=== PATIENT | male | born 1955 | race African-American/Black ===

== ENCOUNTER → 2016-12-25 | Outpatient (CLI) | payer OTHER ==
--- NOTE | 2016-12-25 14:36 | RADIOLOGY REPORT (SQ) ---
EXAM DESCRIPTION: CT ABD/PELVIS WITH IV ORAL COMPLETED DATE/TIME: 12/25/2016 1:36 pm REASON FOR STUDY: EPIGASTRIC PAIN R10.13 EPIGASTRIC PAIN R17 UNSPECIFIED JAUNDICE R19.7 DIARRHEA, UNSPECIFIED COMPARISON: None. TECHNIQUE: CT scan of the abdomen and pelvis performed using helical scanning technique with dynamic intravenous contrast injection and with oral contrast. Images reviewed with lung, soft tissue, and b one windows. Reconstructed coronal and sagittal MPR images reviewed. Delayed images for evaluation of the urinary system also acquired. All images stored on PACS. All CT scanners at this facility use dose modulation, iterative reconstruction, and/or weight based d osing when appropriate to reduce radiation dose to as low as reasonably achievable (ALARA). [facility]: Dose Right [facility]: CareDose [facility]: Dose Right [facility]: Teradose 4D [facility]: Mozes CONTRAST TYPE AND DOSE: contrast/concentration: Isovue 370.00 mg/ml; Total Contrast Delivered: 84.0 ml; Total Saline Delivered: 69.0 ml RENAL FUNCTION: BUN 15 creatinine 0.88. RADIATION DOSE: Up-to-date CT equipment and radiation dose reduction techniques were employed. CTDIv ol: 5.6 - 6.6 mGy. DLP: 618 mGy-cm.. LIMITATIONS: None. FINDINGS: LOWER CHEST: No significant findings. No nodules or infiltrates. LIVER: Normal size. No masses. Prominent intrahepatic biliary dilation. SPLEEN: Normal size. No focal lesions. PANCREAS: Dilated common hepatic and common bile duct and mildly dilated pancreatic duct. Minimal pr ominence of the pancreatic head but no focal mass evident. GALLBLADDER: Distended. Layering material in the lumen of the gallbladder. No gallbladder wall thic kening or pericholecystic fluid. ADRENAL GLANDS: No significant masses or asymmetry. RIGHT KIDNEY AND URETER: No solid masses. Calyceal calculi, the largest measuring 8 mm. No hydron ephrosis or hydroureter. LEFT KIDNEY AND URETER: No solid masses. A few tiny calyceal calculi. No hydronephrosis or hydrou reter. AORTA AND VESSELS: No aneurysm. No dissection. Renal arteries, SMA, celiac without stenosis. RETROPERITONEUM: No retroperitoneal adenopathy, hemorrhage or masses. BOWEL AND PERITONEAL CAVITY: No masses or inflammatory changes. No free fluid or peritoneal masses. APPENDIX: Normal. PELVIS: No mass. No free fluid. Irregular calculus in the lumen of the bladder, measuring 13 mm. P rostatic calcifications. ABDOMINAL WALL: No masses. No hernias. BONES: No significant or acute findings. OTHER: No other significant finding. IMPRESSION: 1. MARKED DILATION OF THE INTRAHEPATIC AND EXTRAHEPATIC BILE DUCTS AND MILD DILATION OF THE PANCREATI C DUCT. FINDINGS ARE CONSISTENT WITH DISTAL OBSTRUCTION. NO OBVIOUS ETIOLOGY BUT POSSIBLE CONSIDERA TIONS WOULD BE DISTAL STONE VERSUS MASS IN THE PANCREATIC HEAD/AMPULLA. 2. DISTENDED GALLBLADDER CONTAINING SLUDGE. THIS IS PROBABLY SECONDARY TO BILIARY OBSTRUCTION. NO F INDINGS CONCERNING FOR ACUTE CHOLECYSTITIS. 3. NONOBSTRUCTING CALYCEAL CALCULI IN BOTH KIDNEYS. THERE IS A FAIRLY LARGE BLADDER STONE WELL. 4. NO OTHER SIGNIFICANT OR ACUTE FINDING IN THE ABDOMEN OR PELVIS ON CT SCAN WITH IV CONTRAST. TECHNICAL DOCUMENTATION: JOB ID: [id number] Quality ID # [id number]: Final reports with documentation of one or more dose reduction techniques (e.g., Au tomated exposure control, adjustment of the mA and/or kV according to patient size, use of iterative reconstruction technique) 2010 [employer]- All Rights Reserved
== END ==
LOC: RAD 10:29
PROVIDERS: ATTEND Physician Assistant
DX: R94.5 Abnormal results of liver function studies (principal); R17 Unspecified jaundice; R19.7 Diarrhea, unspecified; R10.13 Epigastric pain
CPT/HCPCS: 74177

== ENCOUNTER → 2016-12-26 | Outpatient (CLI) | payer OTHER ==
[2016-12-26 17:30] LABS: HEMATOCRIT 38.7 % (37.9-51.0); HEMOGLOBIN 13.1 g/dL (13.5-17.0); HGB HCT DIFFERENCE 0.6; MEAN CORPUSCULAR HEMOGLOBIN 32.4 pg (27.0-33.4); MEAN CORPUSCULAR HGB CONC 33.9 g/dL (32.0-36.0); MEAN CORPUSCULAR VOLUME 96 fl (80-97); RED BLOOD COUNT 4.05 10^6/uL (4.35-5.55); RED CELL DISTRIBUTION WIDTH 15.6 % (11.5-14.0); WHITE BLOOD COUNT 5.8 10^3/uL (4.0-10.5)
[2016-12-26 17:41] LABS: PROTHROMBIN TIME 13.8 SEC (11.4-15.4)
[2016-12-26 17:51] LABS: ALANINE AMINOTRANSFERASE 215 U/L (21-72); ALBUMIN 4.3 g/dL (3.5-5.0); ALKALINE PHOSPHATASE 394 U/L (38-126); ANION GAP 14 (5-19); ASPARTATE AMINO TRANSFERASE 162 U/L (17-59); BILIRUBIN,DIRECT 19.5 mg/dL (0.0-0.4); BILIRUBIN,TOTAL 22.1 mg/dL (0.2-1.3); BLOOD UREA NITROGEN 15 mg/dL (7-20); CALCIUM 9.1 mg/dL (8.4-10.2); CARBON DIOXIDE 23 mmol/L (22-30); CHLORIDE 101 mmol/L (98-107); CREATININE RESULT 0.71 mg/dL (0.52-1.25); GLUCOSE 99 mg/dL (75-110); POTASSIUM 4.1 mmol/L (3.6-5.0); SODIUM 137.5 mmol/L (137-145); TOTAL PROTEIN 8.8 g/dL (6.3-8.2)
== END ==
LOC: LAB 17:09
PROVIDERS: ATTEND Internal Medicine Gastroenterology
DX: R93.2 Abnormal findings on diagnostic imaging of liver and biliary tract (principal); R94.5 Abnormal results of liver function studies
CPT/HCPCS: 36415; 80048; 80076; 85027; 85610

== ENCOUNTER → 2017-01-31 | Outpatient (CLI) | payer SELFPAY ==
[2017-01-31 08:59] LABS: HEMATOCRIT 37.1 % (37.9-51.0); HGB HCT DIFFERENCE 1.9; MEAN CORPUSCULAR HEMOGLOBIN 33.2 pg (27.0-33.4); MEAN CORPUSCULAR HGB CONC 35.1 g/dL (32.0-36.0); MEAN CORPUSCULAR VOLUME 95 fl (80-97); RED BLOOD COUNT 3.92 10^6/uL (4.35-5.55); RED CELL DISTRIBUTION WIDTH 13.9 % (11.5-14.0)
[2017-01-31 09:11] LABS: PROTHROMBIN TIME 15.2 SEC (11.4-15.4)
[2017-01-31 09:32] LABS: ALANINE AMINOTRANSFERASE 227 U/L (21-72); ALBUMIN 3.7 g/dL (3.5-5.0); ALKALINE PHOSPHATASE 458 U/L (38-126); ANION GAP 14 (5-19); ASPARTATE AMINO TRANSFERASE 213 U/L (17-59); BILIRUBIN,DIRECT 18.7 mg/dL (0.0-0.4); BILIRUBIN,TOTAL 20.8 mg/dL (0.2-1.3); BLOOD UREA NITROGEN 12 mg/dL (7-20); CARBON DIOXIDE 21 mmol/L (22-30); CHLORIDE 101 mmol/L (98-107); CREATININE RESULT 0.56 mg/dL (0.52-1.25); GLUCOSE 116 mg/dL (75-110); POTASSIUM 3.1 mmol/L (3.6-5.0); SODIUM 136.3 mmol/L (137-145); TOTAL PROTEIN 7.9 g/dL (6.3-8.2)
== END ==
LOC: LAB 08:45
PROVIDERS: ATTEND Internal Medicine Gastroenterology
DX: R94.5 Abnormal results of liver function studies (principal); R10.13 Epigastric pain
CPT/HCPCS: 36415; 80048; 80076; 83690; 85027; 85610

== ENCOUNTER 2017-02-05 13:30 | Day surgery (SDC) | payer OTHER ==
[2017-02-01 12:41] LABS: HEMATOCRIT 36.6 % (37.9-51.0); HEMOGLOBIN 12.5 g/dL (13.5-17.0); HGB HCT DIFFERENCE 0.9; MEAN CORPUSCULAR HGB CONC 34.1 g/dL (32.0-36.0); MEAN CORPUSCULAR VOLUME 97 fl (80-97); RED BLOOD COUNT 3.78 10^6/uL (4.35-5.55); RED CELL DISTRIBUTION WIDTH 13.7 % (11.5-14.0); WHITE BLOOD COUNT 5.7 10^3/uL (4.0-10.5)
[2017-02-01 13:05] LABS: ANION GAP 12 (5-19); BLOOD UREA NITROGEN 14 mg/dL (7-20); CARBON DIOXIDE 25 mmol/L (22-30); CHLORIDE 96 mmol/L (98-107); CREATININE RESULT 0.57 mg/dL (0.52-1.25); GLUCOSE 104 mg/dL (75-110); POTASSIUM 3.5 mmol/L (3.6-5.0); SODIUM 132.9 mmol/L (137-145)
--- NOTE | 2017-02-01 21:53 | EKG REPORT ---
SEVERITY:- NORMAL ECG - SINUS RHYTHM : Confirmed by: Thuy Baird 01-Feb-2017 21:52:09
[~2017-02-05 13:30] MED LIST: LACTATED RINGERS 1000 ML IV PRN
[2017-02-05] MEDS ORDERED: EPHEDRINE SULFATE INJ 50 MG/1 ML AMPULE ONE (15:05)
[2017-02-05] MEDS ORDERED: ONDANSETRON HCL INJ/PF 4 MG/2 ML SDV ONE (15:05)
[2017-02-05] MEDS ORDERED: PROPOFOL INJ 200 MG/20 ML VIAL IV ONE (15:05)
[2017-02-05] MEDS ORDERED: MIDAZOLAM 2 MG/2 ML INJ ONE (15:05)
[2017-02-05] MEDS ORDERED: FENTANYL CITRATE INJ/PF 100 MCG/2 ML AMPUL ONE (15:05)
[2017-02-05] MEDS ORDERED: FENTANYL CITRATE INJ/PF 100 MCG/2 ML AMPUL IV PRN ×3 (16:37)
[2017-02-05] MEDS ORDERED: DIPHENHYDRAMINE HCL 50 MG/ML VIAL IV PRN (16:37)
[2017-02-05] MEDS ORDERED: PROMETHAZINE HCL INJ 25 MG/1 ML VIAL IV PRN (16:37)
[2017-02-05] MEDS ORDERED: MEPERIDINE HCL/PF INJ 25 MG/1 ML DISP.SYRIN IV PRN (16:37)
[2017-02-05] MEDS ORDERED: INDOMETHACIN 50 MG SUPP.RECT PR ONE ×2 (17:12→18:00)
[2017-02-05] MEDS ORDERED: ACETAMINOPHEN 325 MG TABLET PO PRN (17:40)
[2017-02-05] MEDS ORDERED: SIMETHICONE 80 MG TAB.CHEW PO PRN (17:40)
[2017-02-05] MEDS ORDERED: PROMETHAZINE HCL INJ 25 MG/1 ML VIAL INJ PRN (17:41)
[2017-02-05] MEDS ORDERED: DEXTROSE 5%-1/2 NORMAL SALINE 1,000 ML IV PRN (17:42)
--- NOTE | 2017-02-05 17:45 | Operative Report ---
Operative Report DATE OF SURGERY: 02/05/17 Operative Report: Pre-op diagnosis: Jaundice and dilated biliary tree Post-op diagnosis: 1. Stricture in the distal one third of pancreatic and common bile duct with proximal dilation. Likely from pancreatic carcinoma 2. Inadvertent submucosa ampullary injection Surgery: ERCP with sphincterotomy and placement of 10 Vietnamese 7 cm stent Medications: As per anesthesia Tissue removed: Procedure: After informed consent obtained from patient, he was placed under general anesthesia. The ERCP endoscope was then inserted into the esophagus blindly and advanced into the stomach. The duodenum was entered and the ampulla was identified. Using the triple-lumen sphincterotomy catheter attempt was made to cannulate the common bile duct. The pancreatic duct was initially cannulated and this showed a long stricture involving the head of the pancreas with marked distal dilation of the ducts. After multiple attempts and an inadvertent submucosa injection I was able to freely cannulate the common bile duct. A cholangiogram showed stricture in the distal one third of the common bile duct with proximal dilation. No definite filling defects was identified in the proximal ducts. A moderate-sized sphincterotomy was then performed using the Endocut mode. The catheter was removed over the guidewire and a 10 Vietnamese 7 cm stent was then placed in the common bile duct. There was free flow of bile from the stent at the end of the procedure. Patient tolerated procedure well. Findings Common bile duct: Distal stricture with proximal dilation Intrahepatic ducts: Dilation Pancreatic duct: Long irregular stricture in the pancreatic head with proximal dilation Plan: Will refer patient for endoscopic ultrasound and further treatment of his pancreatic disease. Indometacin was given per rectum OPERATION: .
--- NOTE | 2017-02-05 17:55 | PDOC DISCHARGE SUMMARY ---
Discharge Summary (SDC) - Discharge Final Diagnosis: Pancreatic and biliary obstruction Date of Surgery: 02/05/17 Condition: Stable Treatment or Instructions: Will need endoscopic ultrasound. Patient will be referred to [place] or [place] Referrals: LILIANE CARDONA MD [Primary Care Provider] - Discharge Diet: As Tolerated Discharge Activity: Activity As Tolerated Report the Following to Your Physician Immediately: Shortness of Breath, Nausea , Vomiting, Swelling
--- NOTE | 2017-02-05 18:32 | RADIOLOGY REPORT (SQ) ---
EXAM DESCRIPTION: NO CHG FLUORO; ENDO CATH/BILIARY DUCT COMPLETED DATE/TIME: 02/05/2017 5:46 pm REASON FOR STUDY: ERCP R94.5 ABNORMAL RESULTS OF LIVER FUNCTION STUDIES R10.12 LEFT UPPER QUADRANT PAIN R63.4 ABNORMAL WEIGHT LOSS COMPARISON: None. FLUOROSCOPY TIME: 8.0 minutes. 15 images saved to PACS. TECHNIQUE: Intra-operative images acquired during surgical procedure to evaluate progress. NUMBER OF IMAGES: 15 images. LIMITATIONS: None. FINDINGS: Images acquired during ERCP. There is biliary dilation. Placement of biliary stent. IMPRESSION: IMAGE(S) OBTAINED DURING PROCEDURE. COMMENT: Quality ID [id number]: Final reports for procedures using fluoroscopy that document radiation exp osure indices, or exposure time and number of fluorographic images (if radiation exposure indices are not available) Please consult full operative report of the attending physician for description of the procedure. TECHNICAL DOCUMENTATION: JOB ID: [id number] [employer]- All Rights Reserved
[2017-02-05 19:14] VITALS: BP 125/75
== END 2017-02-05 19:15 | disposition home or self-care (01) ==
LOC: OROUT 13:30
PROVIDERS: ATTEND Internal Medicine Gastroenterology
PROC: 0F798ZZ Dilation of Common Bile Duct, Via Natural or Artificial Opening Endoscopic (ICD-10-PCS; principal; 2017-02-05 15:30)
PROC: 0F758DZ Dilation of Right Hepatic Duct with Intraluminal Device, Via Natural or Artificial Opening Endoscopic (ICD-10-PCS; 2017-02-05 15:30)
DX: K83.1 Obstruction of bile duct (principal); K86.89 Other specified diseases of pancreas; R63.4 Abnormal weight loss; Z68.23 Body mass index [BMI] 23.0-23.9, adult; Z88.0 Allergy status to penicillin
CPT/HCPCS: 43262; 43274; 93005; 36415 ×2; 84132; 85027; 80048; 74328; 93010; C2617; J2250; J3010; J2405; J2704; 740; J3490

== ENCOUNTER 2017-02-25 06:27 | Emergency (ER) | payer OTHER ==
--- NOTE | 2017-02-25 07:03 | ER Document Report ---
ED GI/ - General Chief Complaint: Pelvic Pain Stated Complaint: BLOOD IN URINE Time Seen by Provider: 02/25/17 07:02 Mode of Arrival: Ambulatory Information source: Patient Notes: 61-year-old male complaining of increased symptoms of BPH for the past several weeks now cannot empty his bladder and has overflow incontinence having to wear a diaper. He also sees blood in the urine. No fever or chills. TRAVEL OUTSIDE OF THE [place] IN LAST 30 DAYS: No - Related Data Allergies/Adverse Reactions: Penicillins Allergy (Verified 02/01/17 10:41) Past Medical History - General Information source: Patient - Social History Smoking Status: Never Smoker Frequency of alcohol use: None Drug Abuse: None Lives with: Family Family History: Reviewed & Not Pertinent Patient has suicidal ideation: No Patient has homicidal ideation: No - Medical History Notes: elevated liver enzymes-dr wilkins and dr. michaels working it up Renal/ Medical History: Denies: Hx Peritoneal Dialysis Other: pancreatic mass being worked up Surgical Hx: Negative - Immunizations Hx Diphtheria, Pertussis, Tetanus Vaccination: No Review of Systems - Review of Systems Constitutional: No symptoms reported EENT: No symptoms reported Cardiovascular: No symptoms reported Respiratory: No symptoms reported Gastrointestinal: No symptoms reported Genitourinary: No symptoms reported Male Genitourinary: See HPI Musculoskeletal: No symptoms reported Skin: No symptoms reported Hematologic/Lymphatic: No symptoms reported Neurological/Psychological: No symptoms reported Physical Exam - Vital signs Vitals: Temp Pulse Resp BP Pulse Ox 98.5 F 100 16 150/89 H 98 02/25/17 06:30 02/25/17 06:30 02/25/17 06:30 02/25/17 06:30 02/25/17 06:30 Interpretation: Normal - General General appearance: Appears well, Alert In distress: None - HEENT Head: Normocephalic, Atraumatic Eyes: Normal Pupils: PERRL - Respiratory Respiratory status: No respiratory distress Chest status: Nontender Breath sounds: Normal Chest palpation: Normal - Cardiovascular Rhythm: Regular Heart sounds: Normal auscultation Murmur: No - Abdominal Inspection: Normal Distension: No distension Bowel sounds: Normal Tenderness: Tender - mild over the distended bladder Organomegaly: Other - distended firm bladder - Back Back: Normal, Nontender. No: CVA tenderness - Extremities General upper extremity: Normal inspection, Nontender, Normal color, Normal ROM , Normal temperature General lower extremity: Normal inspection, Nontender, Normal color, Normal ROM , Normal temperature, Normal weight bearing. No: Zaki's sign - Neurological Neuro grossly intact: Yes Cognition: Normal Orientation: AAOx4 Desi Coma Scale Eye Opening: Spontaneous [place] Coma Scale Verbal: Oriented [place] Coma Scale Motor: Obeys Commands [place] Coma Scale Total: 15 Speech: Normal Motor strength normal: LUE, RUE, LLE, RLE Sensory: Normal - Psychological Associated symptoms: Normal affect, Normal mood - Skin Skin Temperature: Warm Skin Moisture: Dry Skin Color: Normal Course - Re-evaluation Re-evalutation: 02/25/17 08:[address] Wilkins and I will have the patient repeat his comprehensive metabolic panel and a CBC on February 28. He has an appointment with Dr. Wilkins at 4 PM. He also is supposed to be seeing [place] for the pancreatic mass that has not been completely evaluated at this point. I will leave the Cordova in place and start the patient on Flomax. I will also refer the patient to a urologist. The bladder decompressed after it was drained with the cordova catheter and pt felt much better tx with cipro pending urine culture - Vital Signs Vital signs: Temp Pulse Resp BP Pulse Ox 97.8 F 61 16 140/77 H 98 02/25/17 09:00 02/25/17 09:00 02/25/17 09:00 02/25/17 09:00 02/25/17 09:00 - Laboratory Result Diagrams: 02/25/17 08:16 02/25/17 07:46 Laboratory results interpreted by me: 02/25/17 02/25/17 02/25/17 07:46 07:58 08:16 WBC 10.6 H RBC 3.93 L Hgb 12.8 L Hct 36.4 L Seg Neutrophils % 80.7 H Lymphocytes % 7.9 L Absolute Neutrophils 8.6 H Sodium 132.2 L Chloride 96 L BUN 31 H Creatinine 1.73 H Est GFR ( Amer) 49 L Est GFR (Non-Af Amer) 40 L Glucose 115 H Total Bilirubin 4.7 H Direct Bilirubin 3.8 H AST 105 H ALT 216 H Alkaline Phosphatase 298 H Albumin 3.4 L Urine Protein 100 H Urine Glucose (UA) 150 H Urine Blood LARGE H Discharge - Discharge Clinical Impression: Acute urinary retention, Cordova catheter insertion, hx pancreatic lesion, abnl liver enzymes, Urinary tract infection, Elevated BUN and creatinine Condition: Good Disposition: HOME, SELF-CARE Instructions: Ciprofloxacin ([facility]), Flomax ([facility]), Cordova Catheter Care ([facility]), Urinary Retention ([facility]), Urinary Tract Infection ([facility]) Additional Instructions: Urine culture is pending Get your labs redrawn on February 28 I will give you a outpatient requisition for this. Follow-up appointment with Dr. Wilkins scheduled for February 28 at 4 PM Leave the Cordova catheter in place Flomax will help shrink the prostate Return to the emergency room for any fever vomiting increased pain call and schedule appointment with the [facility] * Address: [address] [place] [address] , [place] [address] * Please complete the patient satisfaction survey if you get one, and return it.. If you do not receive a survey, then you can go to the [facility] website, [email or web address] and place your comments about your very good care. Thank you very much. It was a pleasure being your medical provider today. Prescriptions: Ciprofloxacin HCl [Cipro 500 mg Tablet] 500 mg PO BID #14 tablet Tamsulosin HCl [Flomax 0.4 mg Cap.sr] 0.4 mg PO DAILY #30 cap.sr.24h Forms: Follow-Up Laboratory Testing, Return to Work Referrals: LILIANE WILKINS MD [Primary Care Provider] - Follow up as needed
[2017-02-25 08:02] LABS: PROTHROMBIN TIME 14.3 SEC (11.4-15.4)
[2017-02-25 08:03] LABS: PARTIAL THROMBOPLASTIN TIME 29.7 SEC (23.5-35.8)
[2017-02-25 08:07] LABS: ALANINE AMINOTRANSFERASE 216 U/L (21-72); ALBUMIN 3.4 g/dL (3.5-5.0); ALKALINE PHOSPHATASE 298 U/L (38-126); ANION GAP 14 (5-19); ASPARTATE AMINO TRANSFERASE 105 U/L (17-59); BILIRUBIN,DIRECT 3.8 mg/dL (0.0-0.4); BILIRUBIN,TOTAL 4.7 mg/dL (0.2-1.3); BLOOD UREA NITROGEN 31 mg/dL (7-20); CALCIUM 8.8 mg/dL (8.4-10.2); CARBON DIOXIDE 22 mmol/L (22-30); CHLORIDE 96 mmol/L (98-107); CREATININE RESULT 1.73 mg/dL (0.52-1.25); GLUCOSE 115 mg/dL (75-110); POTASSIUM 3.6 mmol/L (3.6-5.0); SODIUM 132.2 mmol/L (137-145); TOTAL PROTEIN 7.2 g/dL (6.3-8.2)
[2017-02-25 08:28] LABS: APPEARANCE,URINE CLOUDY; BILIRUBIN,URINE NEGATIVE (NEGATIVE); GLUCOSE, URINE 150 mg/dL (NEGATIVE); KETONES,URINE NEGATIVE (NEGATIVE); LEUKOCYTE ESTERASE,URINE NEGATIVE (NEGATIVE); NITRITE,URINE NEGATIVE (NEGATIVE); PROTEIN,URINE 100 mg/dL (NEGATIVE); URINE SPECIFIC GRAVITY 1.006; UROBILINOGEN,URINE NEGATIVE mg/dL (<2.0)
[2017-02-25 08:32] LABS: ABSOLUTE EOSINOPHILS # (AUTO) 0.1 10^3/uL (0.0-0.6); ABSOLUTE LYMPHOCYTES (AUTO) 0.8 10^3/uL (0.5-4.7); ABSOLUTE MONOCYTES (AUTO) 1.1 10^3/uL (0.1-1.4); ABSOLUTE NEUT (AUTO) 8.6 10^3/uL (1.7-8.2); BASOPHILS % (AUTO) 0.4 % (0-2); EOSINOPHILS % (AUTO) 0.5 % (0-6); HEMATOCRIT 36.4 % (37.9-51.0); HEMOGLOBIN 12.8 g/dL (13.5-17.0); LYMPHOCYTES % (AUTO) 7.9 % (13-45); MEAN CORPUSCULAR HEMOGLOBIN 32.4 pg (27.0-33.4); MEAN CORPUSCULAR HGB CONC 35.1 g/dL (32.0-36.0); MONOCYTES % (AUTO) 10.5 % (3-13); RED BLOOD COUNT 3.93 10^6/uL (4.35-5.55); RED CELL DISTRIBUTION WIDTH 12.7 % (11.5-14.0); SEGMENTED NEUTROPHILS % (AUTO) 80.7 % (42-78); WHITE BLOOD COUNT 10.6 10^3/uL (4.0-10.5)
[2017-02-25] MEDS ORDERED: CIPROFLOXACIN HCL 500 MG TABLET PO ONE (08:38)
[2017-02-25 08:40] LABS: MEAN CORPUSCULAR VOLUME 93 fl (80-97)
[2017-02-25] MEDS ORDERED: TAMSULOSIN HCL 0.4 MG CAP.SR.24H PO ONE (08:42)
[2017-02-25 10:00] VITALS: BP 140/77
== END 2017-02-25 09:56 | disposition home or self-care (01) ==
LOC: ER 06:27
DX: N39.0 Urinary tract infection, site not specified (principal); R31.9 Hematuria, unspecified; R33.9 Retention of urine, unspecified; R10.2 Pelvic and perineal pain; R74.8 Abnormal levels of other serum enzymes; Z85.07 Personal history of malignant neoplasm of pancreas
CPT/HCPCS: 36415; 51702; 80053; 81001; 85025; 85610; 85730; 87086; 99283

== ENCOUNTER → 2017-02-28 | Outpatient (CLI) | payer OTHER ==
[2017-02-28 09:19] LABS: HEMATOCRIT 34.7 % (37.9-51.0); HEMOGLOBIN 12.3 g/dL (13.5-17.0); HGB HCT DIFFERENCE 2.2; MEAN CORPUSCULAR HEMOGLOBIN 32.6 pg (27.0-33.4); MEAN CORPUSCULAR HGB CONC 35.5 g/dL (32.0-36.0); MEAN CORPUSCULAR VOLUME 92 fl (80-97); RED BLOOD COUNT 3.78 10^6/uL (4.35-5.55); RED CELL DISTRIBUTION WIDTH 12.6 % (11.5-14.0); WHITE BLOOD COUNT 5.4 10^3/uL (4.0-10.5)
[2017-02-28 09:39] LABS: ALANINE AMINOTRANSFERASE 172 U/L (21-72); ALBUMIN 3.4 g/dL (3.5-5.0); ALKALINE PHOSPHATASE 273 U/L (38-126); ANION GAP 10 (5-19); ASPARTATE AMINO TRANSFERASE 91 U/L (17-59); BILIRUBIN,DIRECT 3.4 mg/dL (0.0-0.4); BILIRUBIN,TOTAL 4.1 mg/dL (0.2-1.3); BLOOD UREA NITROGEN 14 mg/dL (7-20); CALCIUM 8.5 mg/dL (8.4-10.2); CARBON DIOXIDE 26 mmol/L (22-30); CHLORIDE 99 mmol/L (98-107); CREATININE RESULT 0.74 mg/dL (0.52-1.25); GLUCOSE 164 mg/dL (75-110); POTASSIUM 3.4 mmol/L (3.6-5.0); TOTAL PROTEIN 6.8 g/dL (6.3-8.2)
== END ==
LOC: LAB 09:04
PROVIDERS: ATTEND Nurse Practitioner Family
DX: R94.4 Abnormal results of kidney function studies (principal); R94.8 Abnormal results of function studies of other organs and systems
CPT/HCPCS: 36415; 80053; 85027

== ENCOUNTER 2017-03-22 23:47 | Emergency (ER) | payer OTHER ==
[2017-03-23] MEDS ORDERED: LIDOCAINE 2% URO-JET 5 ML KIT MM ONE (01:45)
--- NOTE | 2017-03-23 01:47 | ER Document Report ---
ED General - General Chief Complaint: Needs Urinary Cath Replaced Stated Complaint: CATHETER ISSUES Time Seen by Provider: 03/23/17 01:45 Notes: Patient is a 61-year-old male who had a catheter placed 2 weeks ago due to prostatic hypertrophy and urinary obstruction. Patient says today the catheter came out. He has been unable to pee and now is in severe pain. He said no bleeding from the urethra. No infection. No other complaints at this time. TRAVEL OUTSIDE OF THE [place] IN LAST 30 DAYS: No - Related Data Allergies/Adverse Reactions: Penicillins Allergy (Verified 02/01/17 10:41) Past Medical History - Social History Smoking Status: Never Smoker Frequency of alcohol use: None Drug Abuse: None Family History: Reviewed & Not Pertinent Patient has suicidal ideation: No Patient has homicidal ideation: No - Past Medical History Cardiac Medical History: Denies: Hx Coronary Artery Disease, Hx Heart Attack, Hx Hypertension Pulmonary Medical History: Denies: Hx Asthma, Hx Bronchitis, Hx COPD, Hx Pneumonia Neurological Medical History: Denies: Hx Cerebrovascular Accident, Hx Seizures Renal/ Medical History: Denies: Hx Peritoneal Dialysis Musculoskeltal Medical History: Denies Hx Arthritis - Immunizations Hx Diphtheria, Pertussis, Tetanus Vaccination: No Review of Systems - Review of Systems Notes: My Normal Review Basic REVIEW OF SYSTEMS: CONSTITUTIONAL : Denies fever, chills, or sweats. Denies recent illness. RESPIRATORY: Denies cough, cold, or chest congestion. Denies shortness of breath, difficulty breathing, or wheezing. GASTROINTESTINAL: Large amount of suprapubic abdominal pain. Denies nausea, vomiting, or diarrhea. Denies constipation. Last BM: GENITOURINARY: Urinary obstruction. MUSCULOSKELETAL: Denies neck or back pain or joint pain or swelling. SKIN: Denies rash or skin lesions. NEUROLOGICAL: Denies altered mental status or loss of consciousness. Denies headache. Denies weakness or paralysis or loss of use of either side. Denies problems with gait or speech. Denies sensory or motor loss. ALL OTHER SYSTEMS REVIEWED AND NEGATIVE. Physical Exam - Vital signs Vitals: Temp Pulse Resp BP Pulse Ox 98.4 F 95 17 167/135 H 96 03/23/17 00:09 03/23/17 00:09 03/23/17 00:09 03/23/17 00:09 03/23/17 00:09 - Notes Notes: General Appearance: Well nourished, alert, cooperative, no acute distress, severe obvious discomfort. Vitals: reviewed, See vital signs table. Abdomen: Normal BS, soft, No rigidity, moderate suprapubic abdominal tenderness outpatient, No guarding, no rebound, no abdominal masses, no organomegaly Genital: No blood from the urethral meatus. No irritation seen to urethral meatus. Extremities: strength 5/5 in all extremities, good pulses in all extremities, no swelling or tenderness in the extremities, no edema. Skin: warm, dry, appropriate color, no rash Neuro: speech clear, oriented x 3, normal affect, responds appropriately to questions. Course - Re-evaluation Re-evalutation: 03/23/17 03:02 Patient has complete resolution of pain after placement of the catheter. He is well-appearing and has no other concerns at this time. He will be discharged home. He is followed a urologist and agrees to follow up with him. He is encouraged to return to ER immediately if he has pain, blood in his urine, fevers, or feels unwell. Patient agrees with plan will be discharged home. Dictation of this chart was performed using voice recognition software; therefore, there may be some unintended grammatical errors. - Vital Signs Vital signs: Temp Pulse Resp BP Pulse Ox 98.4 F 95 17 167/135 H 96 03/23/17 00:09 03/23/17 00:09 03/23/17 00:09 03/23/17 00:09 03/23/17 00:09 Discharge - Discharge Clinical Impression: Urinary retention Condition: Good Disposition: HOME, SELF-CARE Additional Instructions: Please return to the ER immediately if you have blood in your urine, abdominal pain, fevers, or feel unwell. Please follow up with your urologist early next week. Forms: Return to Work
[2017-03-23 03:53] VITALS: BP 129/77
== END 2017-03-23 03:39 | disposition home or self-care (01) ==
LOC: ER 23:47
DX: Z46.6 Encounter for fitting and adjustment of urinary device (principal); N40.1 Benign prostatic hyperplasia with lower urinary tract symptoms; N13.8 Other obstructive and reflux uropathy; R33.8 Other retention of urine; Z88.0 Allergy status to penicillin
CPT/HCPCS: 51702; 99283

== ENCOUNTER 2017-04-13 21:53 | Emergency (ER) | payer SELFPAY ==
[2017-04-13] MEDS ORDERED: LIDOCAINE 2% URO-JET 5 ML KIT MM ONE (22:43)
--- NOTE | 2017-04-13 22:44 | ER Document Report ---
HPI - HPI Patient complains to provider of: Catheter problem Onset: This evening Onset/Duration: Sudden Quality of pain: Pressure Pain Level: 1 Context: Patient states that he had a Saxena catheter that was placed due to urinary retention. Patient does report a history of prostate hypertrophy. Patient states that the balloon deflated and his catheter came out an hour prior to arrival tonight. Patient does state that he also noticed some blood in the tubing and this is a new symptom for him. Patient complains of some mild suprapubic discomfort. Patient denies any fever, nausea, vomiting or back pain. States that his urologist plans to keep the catheter in place until the of this month. Associated Symptoms: Nausea, Other - Sxaena catheter problem. denies: Fever Exacerbated by: Denies Relieved by: Denies Similar symptoms previously: Yes Recently seen / treated by doctor: Yes - ROS ROS below otherwise negative: Yes Systems Reviewed and Negative: Yes All other systems reviewed and negative - CONSTITUTIONAL Constitutional: DENIES: Fever - GASTROINTESTINAL Gastrointestinal: REPORTS: Abdominal Pain - Prepubic tenderness - URINARY Notes: hematuria - MUSCULOSKELETAL Musculoskeletal: DENIES: Extremity pain, Back Pain - DERM Skin Color: Normal, [place] Skin Problems: None Past Medical History - General Information source: Patient - Social History Smoking Status: Never Smoker Frequency of alcohol use: None Drug Abuse: None Occupation: none Family History: Reviewed & Not Pertinent Patient has suicidal ideation: No Patient has homicidal ideation: No - Past Medical History Cardiac Medical History: Denies: Hx Coronary Artery Disease, Hx Heart Attack, Hx Hypertension Pulmonary Medical History: Denies: Hx Asthma, Hx Bronchitis, Hx COPD, Hx Pneumonia Neurological Medical History: Denies: Hx Cerebrovascular Accident, Hx Seizures Renal/ Medical History: Reports: Hx Benign Prostatic Hyperplasia. Denies: Hx Peritoneal Dialysis Malignancy Medical History: Reports Hx Pancreatic Cancer Musculoskeltal Medical History: Denies Hx Arthritis Surgical Hx: Negative - Immunizations Hx Diphtheria, Pertussis, Tetanus Vaccination: No Vertical Provider Document - CONSTITUTIONAL Agree With Documented VS: Yes Exam Limitations: No Limitations General Appearance: WD/WN, No Apparent Distress - INFECTION CONTROL TRAVEL OUTSIDE OF THE [place] IN LAST 30 DAYS: No - HEENT HEENT: Atraumatic, Normocephalic - NECK Neck: Normal Inspection - RESPIRATORY Respiratory: Breath Sounds Normal, No Respiratory Distress O2 Sat by Pulse Oximetry: 100 - CARDIOVASCULAR Cardiovascular: Regular Rate, Regular Rhythm - GI/ABDOMEN Gastrointestinal: Abdomen Soft, Abdomen Non-Tender - BACK Back: Normal Inspection. negative: CVA Tenderness-Right, CVA Tenderness-Left - MUSCULOSKELETAL/EXTREMETIES Musculoskeletal/Extremeties: MAEW - NEURO Level of Consciousness: Awake, Alert, Appropriate Motor/Sensory: No Motor Deficit - DERM Integumentary: Warm, Dry, No Rash Course - Re-evaluation Re-evalutation: 04/14/17 01:00 Patient without any adverse reaction after taking the Keflex. Will discharge patient home with prescription for the antibiotic. Patient advised to recheck with his urologist Saturday for recheck. - Vital Signs Vital signs: Temp Pulse Resp BP Pulse Ox 98.8 F 87 16 144/86 H 100 04/13/17 22:04 04/13/17 22:04 04/13/17 22:04 04/13/17 22:04 04/13/17 22:04 - Laboratory Laboratory results interpreted by me: 04/14/17 05:29 Labs- Entire Visit 04/13/17 23:23 Urine Color YELLOW Urine Appearance CLOUDY Urine pH 6.0 Ur Specific [place] 1.014 Urine Protein 100 H Urine Glucose (UA) NEGATIVE Urine Ketones NEGATIVE Urine Blood LARGE H Urine Nitrite NEGATIVE Urine Bilirubin NEGATIVE Urine Urobilinogen NEGATIVE Ur Leukocyte Esterase LARGE H Urine WBC (Auto) 35 Urine RBC (Auto) 52 Amorphous Sediment Auto 1+ Urine Ascorbic Acid NEGATIVE Discharge - Discharge Clinical Impression: Elevated blood pressure reading, Catheter (urine) change required UTI (urinary tract infection) Qualifiers: Urinary tract infection type: site unspecified Hematuria presence: with hematuria Qualified Code(s): N39.0 - Urinary tract infection, site not specified Condition: Stable Disposition: HOME, SELF-CARE Instructions: Cephalexin ([facility]), Saxena Catheter Care ([facility]), Urinary Tract Infection ([facility]) Additional Instructions: Return immediately for any new or worsening symptoms Followup with your primary care provider, call tomorrow to make a followup appointment Urine culture is pending, we will call if you need any different treatment Follow-up with your urologist Saturday for a recheck Prescriptions: Cephalexin Monohydrate [Keflex 500 mg Capsule] 500 mg PO BID 7 Days capsule Forms: Elevated Blood Pressure Referrals: LILIANE CARDONA MD [Primary Care Provider] - Follow up as needed [facility] [Provider Group] - Follow up as needed [facility] [Provider Group] - Follow up tomorrow
[2017-04-13 23:33] LABS: AMORPHOUS SEDIMENT,URINE 1+ /HPF; APPEARANCE,URINE CLOUDY; BILIRUBIN,URINE NEGATIVE (NEGATIVE); GLUCOSE, URINE NEGATIVE (NEGATIVE); KETONES,URINE NEGATIVE (NEGATIVE); LEUKOCYTE ESTERASE,URINE LARGE (NEGATIVE); NITRITE,URINE NEGATIVE (NEGATIVE); PROTEIN,URINE 100 mg/dL (NEGATIVE); URINE SPECIFIC GRAVITY 1.014; UROBILINOGEN,URINE NEGATIVE mg/dL (<2.0)
[2017-04-14] MEDS ORDERED: CEPHALEXIN 500 MG CAPSULE PO ONE (00:09)
[2017-04-14 01:10] VITALS: BP 139/80
== END 2017-04-14 01:09 | disposition home or self-care (01) ==
LOC: ER 21:53
DX: Z46.6 Encounter for fitting and adjustment of urinary device (principal); N39.0 Urinary tract infection, site not specified; R31.9 Hematuria, unspecified; N40.1 Benign prostatic hyperplasia with lower urinary tract symptoms; R33.8 Other retention of urine; Z85.07 Personal history of malignant neoplasm of pancreas
CPT/HCPCS: 51702; 81001; 87086; 87088; 87186; 99283

== ENCOUNTER 2017-04-18 08:24 | Emergency (ER) | payer OTHER ==
--- NOTE | 2017-04-18 09:18 | ER Document Report ---
ED GI/ - General Mode of Arrival: Ambulatory Information source: Patient TRAVEL OUTSIDE OF THE [place] IN LAST 30 DAYS: No - General Chief Complaint: Needs Urinary Cath Replaced Stated Complaint: URINARY PROBLEMS Time Seen by Provider: 04/18/17 08:50 Notes: Patient is a 62-year-old male with a history of BPH that presents to the emergency department today with complaints of urinary retention. Patient states that his catheter fell out last night at 2100. Patient states that he has suprapubic abdominal pressure. Patient denies any flank pain. (DIANA BLANCA) - Related Data Allergies/Adverse Reactions: Penicillins Allergy (Verified 04/18/17 09:06) Past Medical History - General Information source: Patient - Social History Smoking Status: Never Smoker Cigarette use (# per day): No Chew tobacco use (# tins/day): No Frequency of alcohol use: None Drug Abuse: None Lives with: Family Family History: Reviewed & Not Pertinent Patient has suicidal ideation: No Patient has homicidal ideation: No Renal/ Medical History: Reports: Hx Benign Prostatic Hyperplasia Malignancy Medical History: Reports Hx Pancreatic Cancer Surgical Hx: Negative - Immunizations Hx Diphtheria, Pertussis, Tetanus Vaccination: No Review of Systems - Review of Systems Constitutional: No symptoms reported EENT: No symptoms reported Cardiovascular: No symptoms reported Respiratory: No symptoms reported Gastrointestinal: No symptoms reported Genitourinary: See HPI, Retention Male Genitourinary: No symptoms reported Musculoskeletal: No symptoms reported Skin: No symptoms reported Hematologic/Lymphatic: No symptoms reported Neurological/Psychological: No symptoms reported -: Yes All other systems reviewed and negative - Vital signs Vitals: Temp Pulse Resp Pulse Ox 98.3 F 93 16 100 04/18/17 08:27 04/18/17 08:27 04/18/17 08:27 04/18/17 08:27 Course - Re-evaluation Re-evalutation: 04/18/17 10:54 Catheter was placed without difficulty. Patient is feeling much better. Patient with what appears to be urinary tract infection. Cultures were reviewed from 1111 and patient is on appropriate therapy with Keflex. Patient is to follow-up with his primary care doctor and urologist. Return if any worsening or concerning symptoms. Stable for discharge. (ENEDELIA BURRELL ) - Vital Signs Vital signs: Temp Pulse Resp BP Pulse Ox 98.3 F 93 16 100 04/18/17 08:27 04/18/17 08:27 04/18/17 08:27 04/18/17 08:27 - Laboratory Laboratory results interpreted by me: 04/18/17 09:10 Urine Protein 30 H Urine Blood MODERATE H Ur Leukocyte Esterase TRACE H Discharge - Discharge Clinical Impression: Saxena catheter problem Qualifiers: Encounter type: initial encounter Qualified Code(s): T83.9XXA - Unspecified complication of genitourinary prosthetic device, implant and graft, initial encounter UTI (urinary tract infection) Qualifiers: Urinary tract infection type: site unspecified Hematuria presence: with hematuria Qualified Code(s): N39.0 - Urinary tract infection, site not specified ; R31.9 - Hematuria, unspecified; R31.9 - Hematuria, unspecified Condition: Stable Disposition: HOME, SELF-CARE Instructions: Saxena Catheter Care ([facility]) Prescriptions: Cephalexin Monohydrate [Keflex 500 mg Capsule] 500 mg PO Q6H 10 Days capsule Referrals: LILIANE CARDONA MD [Primary Care Provider] - Follow up in 3-5 days Scribe Attestation: 04/18/17 16:28 I personally performed the services described in the documentation, reviewed and edited the documentation which was dictated to the scribe in my presence, and it accurately records my words and actions. (ENEDELIA BURRELL) Scribe Documentation - Scribe Written by Scribe:: Rachel Jones, 04/18/2017 1123 acting as scribe for :: Raheem
[2017-04-18 10:25] LABS: APPEARANCE,URINE CLEAR; BILIRUBIN,URINE NEGATIVE (NEGATIVE); GLUCOSE, URINE NEGATIVE (NEGATIVE); KETONES,URINE NEGATIVE (NEGATIVE); LEUKOCYTE ESTERASE,URINE TRACE (NEGATIVE); NITRITE,URINE NEGATIVE (NEGATIVE); PROTEIN,URINE 30 mg/dL (NEGATIVE); URINE SPECIFIC GRAVITY 1.015; UROBILINOGEN,URINE NEGATIVE mg/dL (<2.0)
[2017-04-18] MEDS ORDERED: CEPHALEXIN 500 MG CAPSULE PO ONE (10:34)
== END 2017-04-18 11:01 | disposition home or self-care (01) ==
LOC: ER 08:24
DX: Z46.6 Encounter for fitting and adjustment of urinary device (principal); N40.1 Benign prostatic hyperplasia with lower urinary tract symptoms; R33.8 Other retention of urine; N39.0 Urinary tract infection, site not specified; R31.9 Hematuria, unspecified; Z88.0 Allergy status to penicillin; Z85.07 Personal history of malignant neoplasm of pancreas
CPT/HCPCS: 51702; 81001; 99283

== ENCOUNTER 2017-05-20 17:52 | Emergency (ER) | payer OTHER ==
[2017-05-20 17:59] VITALS: BP 179/92
--- NOTE | 2017-05-20 19:20 | ER Document Report ---
ED GI/ - General Chief Complaint: Problem with Urinary Catheter Stated Complaint: ABDOMINAL PAIN Time Seen by Provider: 05/20/17 18:57 Mode of Arrival: Ambulatory TRAVEL OUTSIDE OF THE [place] IN LAST 30 DAYS: No - Related Data Allergies/Adverse Reactions: Penicillins Allergy (Verified 05/20/17 17:55) Past Medical History - Social History Smoking Status: Former Smoker Chew tobacco use (# tins/day): No Frequency of alcohol use: None Drug Abuse: None Family History: Reviewed & Not Pertinent Patient has suicidal ideation: No Patient has homicidal ideation: No - Past Medical History Cardiac Medical History: Denies: Hx Coronary Artery Disease, Hx Heart Attack, Hx Hypertension Pulmonary Medical History: Denies: Hx Asthma, Hx Bronchitis, Hx COPD, Hx Pneumonia Neurological Medical History: Denies: Hx Cerebrovascular Accident, Hx Seizures Renal/ Medical History: Reports: Hx Benign Prostatic Hyperplasia. Denies: Hx Peritoneal Dialysis Malignancy Medical History: Reports Hx Pancreatic Cancer Musculoskeltal Medical History: Denies Hx Arthritis - Immunizations Hx Diphtheria, Pertussis, Tetanus Vaccination: No Physical Exam - Vital signs Vitals: Temp Pulse Resp BP Pulse Ox 98.3 F 77 18 179/92 H 99 05/20/17 17:59 05/20/17 17:59 05/20/17 17:59 05/20/17 17:59 05/20/17 17:59 Course - Re-evaluation Re-evalutation: 05/20/17 20:50 Patient was started on Bactrim for his UTI. Patient's Saxena was discontinued and reinserted due to not functioning. - Vital Signs Vital signs: Temp Pulse Resp BP Pulse Ox 98.3 F 77 18 179/92 H 99 05/20/17 17:59 05/20/17 17:59 05/20/17 17:59 05/20/17 17:59 05/20/17 17:59 - Laboratory Laboratory results interpreted by me: 05/20/17 19:50 Urine Protein 100 H Urine Blood LARGE H Ur Leukocyte Esterase LARGE H Discharge - Discharge Clinical Impression: Encounter for Saxena catheter replacement UTI (urinary tract infection) Qualifiers: Urinary tract infection type: catheter-associated UTI Indwelling urinary catheter type: indwelling urethral catheter Encounter type: initial encounter Qualified Code(s): T83.511A - Infection and inflammatory reaction due to indwelling urethral catheter, initial encounter; N39.0 - Urinary tract infection , site not specified; N39.0 - Urinary tract infection, site not specified Condition: Stable Disposition: HOME, SELF-CARE Additional Instructions: Saxena Catheter Care Tube Position: Keep the catheter connected to the drainage tubing at all times. Avoid pulling on the catheter. Keep the drainage tube taped to the mid- thigh, on top of your leg (not underneath it). Be sure there are no kinks or loops in the tube. Keep the drainage bag below the bladder. When in bed, the drainage bag should hang below the abdomen but should not lie on the floor. The drainage bag has hooks at the top so it can be hung on a chair or bed. Daily Cleaning: Wash your hands with soap and water before and after caring for your catheter. Twice a day, clean yourself where the catheter goes into the urethra. Use a warm, soapy wash cloth to clean around the urethral opening and the first few inches of the catheter. Females should wash from front to back to decrease the risk of infection from fecal material. After washing with soap, rinse the area with water. Do not put powder around the catheter. Apply ointment only if instructed by your doctor or nurse. Follow up if you develop fever or chills, flank or abdominal pain, blood in the urine, or if urine is not draining into the catheter. URINARY TRACT INFECTION: Your evaluation indicates that you have a urinary tract infection. This is due to germs growing in the bladder. This is a common problem. This infection usually responds quickly to antibiotics. Your antibiotic should be taken exactly as prescribed. Drink plenty of fluids -- three to four quarts a day. Occasionally, a bladder anesthetic will be prescribed to help stop the feeling of urgency until the antibiotic has a chance to clear the infection. This may cause your urine to be dark orange. Certain urine infections require a culture. If the doctor obtained a culture, the results will be back in two days. You should call to see if a change in treatment is needed. A repeat urinalysis after you finish treatment is often recommended. The physician will let you know if further testing is required. Call the doctor if you develop fever, chills, flank pain, inability to urinate, or blood in the urine. TRIMETHOPRIM-SULFA: You have been given a prescription for trimethoprim-sulfa (TMS, Septra, Bactrim). This is a combination antibiotic of the sulfa class, often used for urinary tract infections, middle ear infections, bronchitis, shigella intestinal infection, and Pneumocystis pneumonia. TMS is usually well-tolerated. Occasional side effects include nausea and decreased appetite. Septra is not recommended for infants less than two months of age. Do not take this medication if you have experienced severe side effects or allergy to sulfa medicine. You should stop this medicine at once and contact your physician if you develop any rash, joint pain, shortness of breath, bruising, or jaundice ( yellow color in the skin), or if you develop any other new or unusual symptoms. FOLLOW-UP CARE: If you have been referred to a physician for follow-up care, call the physician s office for an appointment as you were instructed or within the next two days. If you experience worsening or a significant change in your symptoms, notify the physician immediately or return to the Emergency Department at any time for re-evaluation. Prescriptions: Sulfamethoxazole/Trimethoprim [Bactrim Ds Tablet] 1 each PO BID #20 tablet Forms: Elevated Blood Pressure Referrals: LILIANE CARDONA MD [Primary Care Provider] - Follow up as needed
[2017-05-20] MEDS ORDERED: LIDOCAINE 2% URO-JET 5 ML KIT MM ONE (19:24)
[2017-05-20 20:38] LABS: APPEARANCE,URINE CLOUDY; BILIRUBIN,URINE NEGATIVE (NEGATIVE); GLUCOSE, URINE NEGATIVE (NEGATIVE); KETONES,URINE NEGATIVE (NEGATIVE); LEUKOCYTE ESTERASE,URINE LARGE (NEGATIVE); NITRITE,URINE NEGATIVE (NEGATIVE); PROTEIN,URINE 100 mg/dL (NEGATIVE); URINE SPECIFIC GRAVITY 1.019; UROBILINOGEN,URINE NEGATIVE mg/dL (<2.0)
[2017-05-20] MEDS ORDERED: SULFAMETHOXAZOLE/TRIMETHOPRIM 800-160 MG TABLET PO ONE (21:05)
== END 2017-05-20 21:00 | disposition home or self-care (01) ==
LOC: ER 17:52
DX: T83.511A Infection and inflammatory reaction due to indwelling urethral catheter, initial encounter (principal); N39.0 Urinary tract infection, site not specified; Y84.6 Urinary catheterization as the cause of abnormal reaction of the patient, or of later complication, without mention of misadventure at the time of the procedure; Z46.6 Encounter for fitting and adjustment of urinary device; Z87.891 Personal history of nicotine dependence; Z85.07 Personal history of malignant neoplasm of pancreas
CPT/HCPCS: 99283; 87086; 87088; 81001; J3490; 87186

== ENCOUNTER 2017-06-03 17:57 | Emergency (ER) | payer OTHER ==
--- NOTE | 2017-06-03 19:47 | ER Document Report ---
ED GI/ - General Chief Complaint: Urinary Problem Stated Complaint: CATHETER PROBLEM Time Seen by Provider: 06/03/17 18:55 Mode of Arrival: Ambulatory Information source: Patient Notes: 52-year-old male presents to ED for complaint of clotting of his Cordova catheter. He states he noticed that he had a little decreased urination around Isaac time but that cleared itself up when he drank more fluids but today around noon he started having less drainage in his back and he noticed some drainage around the catheter. States he had a little bit of discomfort with the tip of his penis. He states that he thought that the catheter was inserted on the but when we checked the records it was inserted on May 20. TRAVEL OUTSIDE OF THE [place] IN LAST 30 DAYS: No - HPI Patient complains to provider of: Cordova catheter problem Onset: This afternoon Timing/Duration: Gradual Quality of pain: Other - Discomfort Severity at maximum: Mild Severity in ED: Mild Pain Level: 1 Location: Other - States he does not think the Cordova is draining right Associated symptoms: Other - States he thinks the Cordova is clogged Exacerbated by: Denies Relieved by: Denies Similar symptoms previously: No - Related Data Allergies/Adverse Reactions: Penicillins Allergy (Verified 06/03/17 18:47) Past Medical History - General Information source: Patient - Social History Smoking Status: Former Smoker Cigarette use (# per day): No Chew tobacco use (# tins/day): No Smoking Education Provided: No Frequency of alcohol use: None Drug Abuse: None Occupation: Maintenance Lives with: Alone Family History: Arthritis, CVA, DM. denies: CAD, COPD, Hyperlipidemia, Hypertension, Malignancy, Thyroid Disfunction Patient has suicidal ideation: No Patient has homicidal ideation: No - Past Medical History Cardiac Medical History: Reports: None Pulmonary Medical History: Reports: None EENT Medical History: Reports: None Neurological Medical History: Reports: None Endocrine Medical History: Reports: None Renal/ Medical History: Reports: Hx Benign Prostatic Hyperplasia Malignancy Medical History: Reports Hx Pancreatic Cancer GI Medical History: Reports: None Musculoskeltal Medical History: Reports Hx Arthritis Skin Medical History: Reports None Psychiatric Medical History: Reports: None Traumatic Medical History: Reports: None Infectious Medical History: Reports: None Surgical Hx: Negative Past Surgical History: Reports: None - Immunizations Hx Diphtheria, Pertussis, Tetanus Vaccination: No Review of Systems - Review of Systems Constitutional: No symptoms reported EENT: No symptoms reported Cardiovascular: No symptoms reported Respiratory: No symptoms reported Gastrointestinal: No symptoms reported Genitourinary: No symptoms reported, Other - Patient stated that his Cordova catheter bag was not draining properly and stated he had some discomfort at his end of his penis. He states he is not drinking enough fluids today. Musculoskeletal: No symptoms reported Skin: No symptoms reported Hematologic/Lymphatic: No symptoms reported Neurological/Psychological: No symptoms reported -: Yes All other systems reviewed and negative Physical Exam - Vital signs Vitals: Temp Pulse Resp BP Pulse Ox 98.7 F 84 16 146/87 H 100 06/03/17 18:19 06/03/17 18:19 06/03/17 18:19 06/03/17 18:19 06/03/17 18:19 Interpretation: Normal - General General appearance: Appears well, Alert In distress: None - HEENT Head: Normocephalic, Atraumatic Eyes: Normal Pupils: PERRL - Respiratory Respiratory status: No respiratory distress Chest status: Nontender Breath sounds: Normal Chest palpation: Normal - Cardiovascular Rhythm: Regular Heart sounds: Normal auscultation Murmur: No - Abdominal Inspection: Normal Distension: No distension Bowel sounds: Normal Tenderness: Nontender Organomegaly: No organomegaly - Genitourinary Notes: No redness no drainage no signs of inflammation or infection. Cordova was irrigated with good brisk return no hesitation with irrigation. 60 cc of saline put in his 60 cc returned. Urine in his leg bag is very dark. Patient given instructions to please increase p.o. intake tremendously. Started with the Cordova bag he should have 8-10 glasses of water a day. - Back Back: Normal, Nontender - Extremities General upper extremity: Normal inspection, Nontender, Normal color, Normal ROM , Normal temperature General lower extremity: Normal inspection, Nontender, Normal color, Normal ROM , Normal temperature, Normal weight bearing. No: Zaki's sign - Neurological Neuro grossly intact: Yes Cognition: Normal Orientation: AAOx4 Desi Coma Scale Eye Opening: Spontaneous [place] Coma Scale Verbal: Oriented [place] Coma Scale Motor: Obeys Commands Desi Coma Scale Total: 15 Speech: Normal Motor strength normal: LUE, RUE, LLE, RLE Sensory: Normal - Psychological Associated symptoms: Normal affect, Normal mood - Skin Skin Temperature: Warm Skin Moisture: Dry Skin Color: Normal Course - Re-evaluation Re-evalutation: 06/03/17 19:55 Glucose was irrigated with 60 cc of normal saline with no resistance at all. After irrigating with saline placed the catheter into a cup and 60 cc were drained back out. Urine in his catheter bag is very dark and concentrated discussed with patient the fact that he needed to increase his p.o. intake that he should be drinking 8-10 glasses of water while he has a Cordova catheter to ensure that he does not get a urinary tract infection. Patient states she has a follow-up appointment in June 12 for his urologist concerning his benign prostate hyperplasia and his Cordova catheter. Patient was instructed to try positioning whenever his Cordova was not draining properly and if he cannot do it with his leg bag then to put it on a bedside bag and hanging it down from his chair so that will drain better. Patient stated he had been concerned about drinking much fluids due to the fact that he did not think a lot of fluid was draining into the bag but did he will go home and drink fluids as he was instructed. - Vital Signs Vital signs: Temp Pulse Resp BP Pulse Ox 98.7 F 84 16 146/87 H 100 06/03/17 18:19 06/03/17 18:19 06/03/17 18:19 06/03/17 18:19 06/03/17 18:19 Discharge - Discharge Clinical Impression: cordova irrigation HTN (hypertension) Qualifiers: Hypertension type: unspecified Qualified Code(s): I10 - Essential (primary) hypertension Condition: Stable Disposition: HOME, SELF-CARE Additional Instructions: Cordova Catheter Care Tube Position: Keep the catheter connected to the drainage tubing at all times. Avoid pulling on the catheter. Keep the drainage tube taped to the mid- thigh, on top of your leg (not underneath it). Be sure there are no kinks or loops in the tube. Keep the drainage bag below the bladder. When in bed, the drainage bag should hang below the abdomen but should not lie on the floor. The drainage bag has hooks at the top so it can be hung on a chair or bed. Daily Cleaning: Wash your hands with soap and water before and after caring for your catheter. Twice a day, clean yourself where the catheter goes into the urethra. Use a warm, soapy wash cloth to clean around the urethral opening and the first few inches of the catheter. Females should wash from front to back to decrease the risk of infection from fecal material. After washing with soap, rinse the area with water. Do not put powder around the catheter. Apply ointment only if instructed by your doctor or nurse. Follow up if you develop fever or chills, flank or abdominal pain, blood in the urine, or if urine is not draining into the catheter. High Blood Pressure When your blood pressure was taken today it was elevated. Today's reading was 146/87 . Pre-hypertension/Hypertension: The patient has been informed that they may have pre-hypertension or Hypertension based on a blood pressure reading in the emergency department. I recommend that the patient call the primary care provider listed on their discharge instructions or a physician of their choice this wee to arrange follow up for further evaluation of possible pre- hypertension or Hypertension. Sometimes, stress or illness causes a temporary elevation of your blood pressure. We suggest that you get your blood pressure measured three more times during the next few days to see if this is more than a temporary abnormality. If your blood pressure is greater than 150/90 on each occasion, you must have treatment. Some simple things you can do to help are: If you have blood pressure medicine but aren't using it regularly, start taking it again. Get some aerobic exercise for at least 20 minutes on a daily basis. (See your doctor before beginning a new exercise program.) Eat a low-fat diet. Lose excess weight. Avoid salty foods and avoid adding salt to any of the foods you eat. Avoid diet pills, decongestants, "energizing" herbs, and other medicines that elevate blood pressure. If left untreated, hypertension greatly enhances your risk for developing heart disease and strokes. Please don't ignore this problem. FOLLOW-UP CARE: If you have been referred to a physician for follow-up care, call the physician s office for an appointment as you were instructed or within the next two days. If you experience worsening or a significant change in your symptoms, notify the physician immediately or return to the Emergency Department at any time for re-evaluation. Forms: Elevated Blood Pressure Referrals: LILIANE CARDONA MD [Primary Care Provider] - Follow up as needed
[2017-06-03 19:53] VITALS: BP 145/78
== END 2017-06-03 19:53 | disposition home or self-care (01) ==
LOC: ER 17:57
DX: Z46.6 Encounter for fitting and adjustment of urinary device (principal); N40.0 Benign prostatic hyperplasia without lower urinary tract symptoms; I10 Essential (primary) hypertension; Z88.0 Allergy status to penicillin; Z87.891 Personal history of nicotine dependence; Z85.07 Personal history of malignant neoplasm of pancreas
CPT/HCPCS: 99283

== ENCOUNTER 2017-06-12 20:17 | Emergency (ER) | payer OTHER ==
[2017-06-12 20:38] VITALS: BP 186/122
--- NOTE | 2017-06-12 21:44 | ER Document Report ---
ED General - General Chief Complaint: Urinary Retention Stated Complaint: DIFFICULTY URINATING Time Seen by Provider: 06/12/17 21:43 Notes: 62-year-old male. History of enlarged prostate. Followed by urology. Had a catheter in for approximately 4 weeks. Had catheter removed today at 10 AM by urology. Has not been able to urinate since then. TRAVEL OUTSIDE OF THE [place] IN LAST 30 DAYS: No - HPI Onset: This morning Onset/Duration: Gradual Quality of pain: No pain Severity: Severe Pain Level: 4 Associated symptoms: None - Related Data Allergies/Adverse Reactions: Penicillins Allergy (Verified 06/03/17 18:47) Past Medical History - General Information source: Patient - Social History Smoking Status: Former Smoker Cigarette use (# per day): No Chew tobacco use (# tins/day): No Smoking Education Provided: No Frequency of alcohol use: None Drug Abuse: None Family History: Arthritis, CVA, DM. denies: CAD, COPD, Hyperlipidemia, Hypertension, Malignancy, Thyroid Disfunction Patient has suicidal ideation: No Patient has homicidal ideation: No - Past Medical History Cardiac Medical History: Denies: Hx Coronary Artery Disease, Hx Heart Attack, Hx Hypertension Pulmonary Medical History: Denies: Hx Asthma, Hx Bronchitis, Hx COPD, Hx Pneumonia Neurological Medical History: Denies: Hx Cerebrovascular Accident, Hx Seizures Renal/ Medical History: Reports: Hx Benign Prostatic Hyperplasia. Denies: Hx Peritoneal Dialysis Malignancy Medical History: Reports Hx Pancreatic Cancer Musculoskeltal Medical History: Reports Hx Arthritis - Immunizations Hx Diphtheria, Pertussis, Tetanus Vaccination: No Review of Systems - Review of Systems Constitutional: No symptoms reported Cardiovascular: No symptoms reported Respiratory: No symptoms reported Gastrointestinal: No symptoms reported Genitourinary: See HPI Male Genitourinary: See HPI Physical Exam - Vital signs Vitals: Temp Pulse Resp BP Pulse Ox 98.5 F 91 20 186/122 H 100 06/12/17 20:26 06/12/17 20:26 06/12/17 20:26 06/12/17 20:26 06/12/17 20:26 Interpretation: Normal - General General appearance: Anxious In distress: Moderate Notes: UnComfortable appearing - Respiratory Respiratory status: No respiratory distress Chest status: Nontender Breath sounds: Normal Chest palpation: Normal - Cardiovascular Rhythm: Regular Heart sounds: Normal auscultation - Abdominal Distension: Distended Bowel sounds: Normal Tenderness: Tender Course - Re-evaluation Re-evalutation: 06/12/17 21:54 Will insert Saxena and reassess. 06/12/17 22:13 Saxena placed. Symptoms improved. Will DC. - Vital Signs Vital signs: Temp Pulse Resp BP Pulse Ox 98.5 F 91 20 186/122 H 100 06/12/17 20:26 06/12/17 20:26 06/12/17 20:26 06/12/17 20:26 06/12/17 20:26 Discharge - Discharge Clinical Impression: Urinary retention due to benign prostatic hyperplasia Condition: Good Disposition: HOME, SELF-CARE Instructions: Saxena Catheter Care ([facility]), Urinary Retention ([facility]) Additional Instructions: These follow-up with your urologist in 3-5 days for catheter removal trials Referrals: NORY BENÍTEZ II, MD [[employer]END [employer] DEVELOPER] - Follow up in 3-5 days
== END 2017-06-12 22:48 | disposition home or self-care (01) ==
LOC: ER 20:17
DX: N40.1 Benign prostatic hyperplasia with lower urinary tract symptoms (principal); R33.8 Other retention of urine; Z87.891 Personal history of nicotine dependence; Z88.0 Allergy status to penicillin; Z85.07 Personal history of malignant neoplasm of pancreas
CPT/HCPCS: 51702; 99282

== ENCOUNTER 2017-10-24 05:43 | Emergency (ER) | payer OTHER ==
--- NOTE | 2017-10-24 07:10 | ER Document Report ---
ED General - General Chief Complaint: Needs Urinary Cath Replaced Stated Complaint: CATHETER PROBLEMS Time Seen by Provider: 10/24/17 06:34 Mode of Arrival: Ambulatory Information source: Patient Notes: Patient is a 62 yo w/ hx of Enlarged prostate and pancreatic cancer on chemo who presents after spontaneous removal of Cordova catheter at 5:30 AM this morning that was originally placed yesterday morning around 11 AM. Since Cordova placement yesterday it felt weird and uncomfortable. He was going to follow-up with his urologist in town this morning however the Cordova came out when he got up to use the restroom. Came into hospital soon after to avoid complications. He was unable to void once cordova came out. Admits to pressure without significant pain. Denies fever, chills, n/v, abdominal pain, blood. TRAVEL OUTSIDE OF THE [place] IN LAST 30 DAYS: No - HPI Onset: Just prior to arrival Onset/Duration: Sudden Quality of pain: Pressure Severity: Mild Pain Level: 1 Associated symptoms: Other Exacerbated by: Denies Relieved by: Denies Similar symptoms previously: Yes Recently seen / treated by doctor: Yes - Related Data Allergies/Adverse Reactions: Penicillins Allergy (Verified 06/03/17 18:47) Past Medical History - Social History Smoking Status: Never Smoker Cigarette use (# per day): No Chew tobacco use (# tins/day): No Smoking Education Provided: No Frequency of alcohol use: None Drug Abuse: None Family History: Arthritis, CVA, DM. denies: CAD, COPD, Hyperlipidemia, Hypertension, Malignancy, Thyroid Disfunction Patient has suicidal ideation: No Patient has homicidal ideation: No - Past Medical History Cardiac Medical History: Denies: Hx Coronary Artery Disease, Hx Heart Attack, Hx Hypertension Pulmonary Medical History: Denies: Hx Asthma, Hx Bronchitis, Hx COPD, Hx Pneumonia Neurological Medical History: Denies: Hx Cerebrovascular Accident, Hx Seizures Renal/ Medical History: Reports: Hx Benign Prostatic Hyperplasia. Denies: Hx Peritoneal Dialysis Malignancy Medical History: Reports Hx Pancreatic Cancer Musculoskeltal Medical History: Reports Hx Arthritis - Immunizations Hx Diphtheria, Pertussis, Tetanus Vaccination: No Review of Systems - Review of Systems Notes: REVIEW OF SYSTEMS: CONSTITUTIONAL : Denies fever, chills, or sweats. Denies recent illness. EENT: Denies eye, ear, throat, or mouth pain or symptoms. Denies nasal or sinus congestion or discharge. Denies throat, tongue, or mouth swelling or difficulty swallowing. CARDIOVASCULAR: Denies chest pain. Denies palpitations or racing or irregular heart beat. Denies ankle edema. RESPIRATORY: Denies cough, cold, or chest congestion. Denies shortness of breath, difficulty breathing, or wheezing. GASTROINTESTINAL: Denies abdominal pain or distention. Denies nausea, vomiting , or diarrhea. Denies blood in vomitus, stools, or per rectum. Denies black, tarry stools. Denies constipation. GENITOURINARY: Admits to difficulty urinating MUSCULOSKELETAL: Denies back or neck pain or stiffness. Denies joint pain or swelling. SKIN: Denies rash, lesions or sores. HEMATOLOGIC : Denies easy bruising or bleeding. LYMPHATIC: Denies swollen, enlarged glands. NEUROLOGICAL: Denies confusion or altered mental status. Denies passing out or loss of consciousness. Denies dizziness or lightheadedness. Denies headache. Denies weakness or paralysis or loss of use of either side. Denies problems with gait or speech. Denies sensory loss, numbness, or tingling. Denies seizures. PSYCHIATRIC: Denies anxiety or stress. Denies depression, suicidal ideation, or homicidal ideation. ALL OTHER SYSTEMS REVIEWED AND NEGATIVE. Dictation was performed using [employer] voice recognition software PHYSICAL EXAMINATION: GENERAL: Well-appearing, well-nourished and in no acute distress. HEAD: Atraumatic, normocephalic. EYES: Pupils equal round and reactive to light, extraocular movements intact, sclera anicteric, conjunctiva are normal. ENT: Nares patent, oropharynx clear without exudates. Moist mucous membranes. NECK: Normal range of motion, supple without lymphadenopathy LUNGS: Breath sounds clear to auscultation bilaterally and equal. No wheezes rales or rhonchi. HEART: Regular rate and rhythm without murmurs ABDOMEN: Soft, nontender, nondistended abdomen. No guarding, no rebound. No masses appreciated. Musculoskeletal: Normal range of motion, no pitting or edema. No cyanosis. NEUROLOGICAL: Cranial nerves grossly intact. Normal speech, normal gait. Normal sensory, motor exams PSYCH: Normal mood, normal affect. SKIN: Warm, Dry, normal turgor, no rashes or lesions noted. Physical Exam - Vital signs Vitals: Temp Pulse Resp BP Pulse Ox 98.7 F 88 18 154/93 H 100 10/24/17 05:49 10/24/17 05:49 10/24/17 05:49 10/24/17 05:49 10/24/17 05:49 Course - Re-evaluation Re-evalutation: 10/24/17 07:37 Cordova was placed 200 cc of urine was returned pressure improved 10/24/17 15:17 Patient will be discharged home to follow-up with his own urologist otherwise is stable After performing a Medical Screening Examination, I estimate there is LOW risk for ACUTE APPENDICITIS, BOWEL OBSTRUCTION, ACUTE CHOLECYSTITIS, PERFORATED DIVERTICULITIS, INCARCERATED HERNIA, PANCREATITIS, TESTICULAR TORSION or PERFORATED ULCER, thus I consider the discharge disposition reasonable. Also, there is no evidence or peritonitis, sepsis, or toxicity. I have reevaluated this patient multiple times and no significant life threatening changes are noted. The patient and I have discussed the diagnosis and risks, and we agree with discharging home with close follow-up with the understanding that symptoms and presentations can change. We also discussed returning to the Emergency Department immediately if new or worsening symptoms occur. We have discussed the symptoms which are most concerning (e.g., bloody stool, fever, changing or worsening pain, intractable vomiting - standard verbal up date) that necessitate immediate return. - Vital Signs Vital signs: Temp Pulse Resp BP Pulse Ox 98.8 F 68 18 135/68 H 100 10/24/17 08:21 10/24/17 08:21 10/24/17 08:21 10/24/17 08:21 10/24/17 08:21 Discharge - Discharge Clinical Impression: Cordova catheter present, Urinary retention Condition: Stable Disposition: HOME, SELF-CARE Additional Instructions: Please follow-up with your urologist for further evaluation care return immediately if there are any other concerns Referrals: LILIANE CARDONA MD [Primary Care Provider] - Follow up as needed
[2017-10-24 08:51] VITALS: BP 135/68
== END 2017-10-24 08:22 | disposition home or self-care (01) ==
LOC: ER 05:43
DX: Z46.6 Encounter for fitting and adjustment of urinary device (principal); N40.1 Benign prostatic hyperplasia with lower urinary tract symptoms; R33.8 Other retention of urine; C25.9 Malignant neoplasm of pancreas, unspecified; Z79.899 Other long term (current) drug therapy; Z88.0 Allergy status to penicillin
CPT/HCPCS: 51702; 99283

== ENCOUNTER 2017-11-01 05:09 | Emergency (ER) | payer OTHER ==
--- NOTE | 2017-11-01 05:49 | ER Document Report ---
ED Medical Screen (RME) - General Chief Complaint: Other Stated Complaint: CATHETER ISSUE Mode of Arrival: Ambulatory Information source: Patient Notes: 62-year-old male with an enlarged prostate and chronic Saxena presents with request for Saxena replacement. Patient states that 3 hours prior to arrival the Saxena fell out. Patient was able to urinate a very little bit to relieve the pressure but is requesting it to be replaced. I have greeted and performed a rapid initial assessment of this patient. A comprehensive ED assessment and evaluation of the patient including analysis of labs and imaging ( if obtained) and completion of medical decision making will be conducted by an additional ED provider. PHYSICAL EXAMINATION: GENERAL: Well-appearing, well-nourished and in no acute distress. HEAD: Atraumatic, normocephalic. EYES: Pupils equal round extraocular movements intact, conjunctiva are normal. ENT: Nares patent NECK: Normal range of motion LUNGS: No respiratory distress Musculoskeletal: Normal range of motion NEUROLOGICAL: Normal speech, normal gait. PSYCH: Normal mood, normal affect. SKIN: Warm, Dry, normal turgor, no rashes or lesions noted. TRAVEL OUTSIDE OF THE [place] IN LAST 30 DAYS: No - HPI Onset: Just prior to arrival - Related Data Allergies/Adverse Reactions: Penicillins Allergy (Verified 06/03/17 18:47) Past Medical History - Past Medical History Cardiac Medical History: Denies: Hx Coronary Artery Disease, Hx Heart Attack, Hx Hypertension Pulmonary Medical History: Denies: Hx Asthma, Hx Bronchitis, Hx COPD, Hx Pneumonia Neurological Medical History: Denies: Hx Cerebrovascular Accident, Hx Seizures Renal/ Medical History: Reports: Hx Benign Prostatic Hyperplasia. Denies: Hx Peritoneal Dialysis Malignancy Medical History: Reports Hx Pancreatic Cancer Musculoskeltal Medical History: Reports Hx Arthritis - Immunizations Hx Diphtheria, Pertussis, Tetanus Vaccination: No Physical Exam - Vital signs Vitals: Temp Pulse Resp BP Pulse Ox 99.0 F 78 16 137/71 H 98 11/01/17 05:09 11/01/17 05:09 11/01/17 05:09 11/01/17 05:11/01/17 05:09 Course - Vital Signs Vital signs: Temp Pulse Resp BP Pulse Ox 99.0 F 78 16 137/71 H 98 11/01/17 05:09 11/01/17 05:09 11/01/17 05:09 11/01/17 05:09 11/01/17 05:09 Doctor's Discharge - Discharge Referrals: LILIANE CARDONA MD [Primary Care Provider] - Follow up as needed
--- NOTE | 2017-11-01 06:27 | ER Document Report ---
ED General - General Chief Complaint: Other Stated Complaint: CATHETER ISSUE Time Seen by Provider: 11/01/17 06:25 Mode of Arrival: Ambulatory Notes: 62-year-old male with an enlarged prostate and chronic Saxena presents with request for Saxena replacement. Patient states that 3 hours prior to arrival the Saxena fell out. Patient was able to urinate a very little bit to relieve the pressure but is requesting it to be replaced. TRAVEL OUTSIDE OF THE [place] IN LAST 30 DAYS: No - HPI Onset: Just prior to arrival Onset/Duration: Sudden Quality of pain: No pain Severity: None Associated symptoms: None Exacerbated by: Denies Relieved by: Denies Similar symptoms previously: Yes Recently seen / treated by doctor: Yes - Related Data Allergies/Adverse Reactions: Penicillins Allergy (Verified 06/03/17 18:47) Past Medical History - General Information source: Patient - Social History Smoking Status: Unknown if Ever Smoked Frequency of alcohol use: None Drug Abuse: None Lives with: Family Family History: Arthritis, CVA, DM. denies: CAD, COPD, Hyperlipidemia, Hypertension, Malignancy, Thyroid Disfunction Patient has suicidal ideation: No Patient has homicidal ideation: No - Past Medical History Cardiac Medical History: Denies: Hx Coronary Artery Disease, Hx Heart Attack, Hx Hypertension Pulmonary Medical History: Denies: Hx Asthma, Hx Bronchitis, Hx COPD, Hx Pneumonia Neurological Medical History: Denies: Hx Cerebrovascular Accident, Hx Seizures Renal/ Medical History: Reports: Hx Benign Prostatic Hyperplasia. Denies: Hx Peritoneal Dialysis Malignancy Medical History: Reports Hx Pancreatic Cancer Musculoskeltal Medical History: Reports Hx Arthritis - Immunizations Hx Diphtheria, Pertussis, Tetanus Vaccination: No Review of Systems - Review of Systems Notes: REVIEW OF SYSTEMS: CONSTITUTIONAL : Denies fever, chills, or sweats. Denies recent illness. Denies weight loss, recent hospitalizations. EENT: Denies visula changes, eye pain. Denies nasal or sinus congestion or discharge. Denies sore throat, oral lesions, difficulty swallowing. CARDIOVASCULAR: Denies chest pain. Denies palpitations or racing or irregular heart beat. Denies lower extremity edema. RESPIRATORY: Denies cough, cold, or chest congestion. Denies shortness of breath, difficulty breathing, or wheezing. GASTROINTESTINAL: Denies abdominal pain or distention. Denies nausea, vomiting , or diarrhea. Denies blood in vomitus, stools, or per rectum. Denies black, tarry stools. Denies constipation. GENITOURINARY: Denies difficulty urinating, painful urination, burning, frequency, blood in urine, or vaginal discharge. MUSCULOSKELETAL: Denies back or neck pain or stiffness. Denies joint pain or swelling. SKIN: Denies rash, lesions or sores. HEMATOLOGIC : Denies easy bruising or bleeding. LYMPHATIC: Denies swollen, enlarged glands. NEUROLOGICAL: Denies confusion or altered mental status. Denies passing out or loss of consciousness. Denies dizziness or lightheadedness. Denies headache. Denies weakness or paralysis or loss of use of either side. Denies problems with gait or speech. Denies sensory loss, numbness, or tingling. Denies seizures. PSYCHIATRIC: Denies anxiety or stress. Denies depression, suicidal ideation, or homicidal ideation. Physical Exam - Vital signs Vitals: Temp Pulse Resp BP Pulse Ox 99.0 F 78 16 137/71 H 98 11/01/17 05:09 11/01/17 05:09 11/01/17 05:09 11/01/17 05:09 11/01/17 05:09 - Notes Notes: PHYSICAL EXAMINATION: GENERAL: Well-appearing, well-nourished and in no acute distress. HEAD: Atraumatic, normocephalic. EYES: Pupils equal round and reactive to light, extraocular movements intact, sclera anicteric, conjunctiva are normal. ENT: Nares patent, oropharynx clear without exudates. Moist mucous membranes. NECK: Normal range of motion, supple without lymphadenopathy LUNGS: Breath sounds clear to auscultation bilaterally and equal. No wheezes rales or rhonchi. HEART: Regular rate and rhythm without murmurs ABDOMEN: Soft, nontender, nondistended abdomen. No guarding, no rebound. No masses appreciated. Musculoskeletal: Normal range of motion, no pitting or edema. No cyanosis. NEUROLOGICAL: Cranial nerves grossly intact. Normal speech, normal gait. Normal sensory, motor exams PSYCH: Normal mood, normal affect. SKIN: Warm, Dry, normal turgor, no rashes or lesions noted. Course - Re-evaluation Re-evalutation: 11/01/17 06:26 Saxena replaced without complications. - Vital Signs Vital signs: Temp Pulse Resp BP Pulse Ox 99.0 F 78 16 137/71 H 98 06/01/18 05:09 11/01/17 05:09 11/01/17 05:09 11/01/17 05:09 11/01/17 05:09 Discharge - Discharge Clinical Impression: Saxena catheter in place Condition: Good Disposition: HOME, SELF-CARE Instructions: Saxena Catheter Care ([facility]) Forms: Elevated Blood Pressure Referrals: LILIANE CARDONA MD [Primary Care Provider] - Follow up in 3-5 days
[2017-11-01 06:51] VITALS: BP 147/87
== END 2017-11-01 06:35 | disposition home or self-care (01) ==
LOC: ER 05:09
DX: T83.9XXA Unspecified complication of genitourinary prosthetic device, implant and graft, initial encounter (principal); R33.9 Retention of urine, unspecified; N40.0 Benign prostatic hyperplasia without lower urinary tract symptoms
CPT/HCPCS: 51702; 99283

== ENCOUNTER 2017-11-08 08:09 | Emergency (ER) | payer OTHER ==
--- NOTE | 2017-11-08 08:51 | ER Document Report ---
ED General - General Chief Complaint: Needs Urinary Cath Replaced Stated Complaint: NAVARRETE REPLACEMENT Time Seen by Provider: 11/08/17 08:30 Mode of Arrival: Ambulatory Information source: Patient Notes: 62-year-old male history of benign prostate hypertrophy who has an indwelling Navarrete catheter chronically was recently placed 1 week ago fell out this morning. Patient notes he has not voided since 4:00 and states he feels pressure and wants to void. Patient denies any other complaints at all TRAVEL OUTSIDE OF THE [place] IN LAST 30 DAYS: No - HPI Onset: Just prior to arrival Onset/Duration: Sudden Quality of pain: Pressure Severity: Mild Pain Level: 1 Associated symptoms: Other Exacerbated by: Denies Relieved by: Denies Similar symptoms previously: Yes Recently seen / treated by doctor: Yes - Patient went to urology clinic and was sent here instead - Related Data Allergies/Adverse Reactions: Penicillins Allergy (Verified 11/08/17 08:10) Past Medical History - Social History Smoking Status: Never Smoker Cigarette use (# per day): No Chew tobacco use (# tins/day): No Smoking Education Provided: No Family History: Arthritis, CVA, DM. denies: CAD, COPD, Hyperlipidemia, Hypertension, Malignancy, Thyroid Disfunction - Past Medical History Cardiac Medical History: Denies: Hx Coronary Artery Disease, Hx Heart Attack, Hx Hypertension Pulmonary Medical History: Denies: Hx Asthma, Hx Bronchitis, Hx COPD, Hx Pneumonia Neurological Medical History: Denies: Hx Cerebrovascular Accident, Hx Seizures Renal/ Medical History: Reports: Hx Benign Prostatic Hyperplasia. Denies: Hx Peritoneal Dialysis Malignancy Medical History: Reports Hx Pancreatic Cancer Musculoskeltal Medical History: Reports Hx Arthritis - Immunizations Hx Diphtheria, Pertussis, Tetanus Vaccination: No Review of Systems - Review of Systems Notes: REVIEW OF SYSTEMS: CONSTITUTIONAL : Denies fever, chills, or sweats. Denies recent illness. EENT: Denies eye, ear, throat, or mouth pain or symptoms. Denies nasal or sinus congestion or discharge. Denies throat, tongue, or mouth swelling or difficulty swallowing. CARDIOVASCULAR: Denies chest pain. Denies palpitations or racing or irregular heart beat. Denies ankle edema. RESPIRATORY: Denies cough, cold, or chest congestion. Denies shortness of breath, difficulty breathing, or wheezing. GASTROINTESTINAL: Denies abdominal pain or distention. Denies nausea, vomiting , or diarrhea. Denies blood in vomitus, stools, or per rectum. Denies black, tarry stools. Denies constipation. GENITOURINARY: Admits to difficulty urinating MUSCULOSKELETAL: Denies back or neck pain or stiffness. Denies joint pain or swelling. SKIN: Denies rash, lesions or sores. HEMATOLOGIC : Denies easy bruising or bleeding. LYMPHATIC: Denies swollen, enlarged glands. NEUROLOGICAL: Denies confusion or altered mental status. Denies passing out or loss of consciousness. Denies dizziness or lightheadedness. Denies headache. Denies weakness or paralysis or loss of use of either side. Denies problems with gait or speech. Denies sensory loss, numbness, or tingling. Denies seizures. PSYCHIATRIC: Denies anxiety or stress. Denies depression, suicidal ideation, or homicidal ideation. ALL OTHER SYSTEMS REVIEWED AND NEGATIVE. Dictation was performed using [id number] voice recognition software PHYSICAL EXAMINATION: GENERAL: Well-appearing, well-nourished and in no acute distress. HEAD: Atraumatic, normocephalic. EYES: Pupils equal round and reactive to light, extraocular movements intact, sclera anicteric, conjunctiva are normal. ENT: Nares patent, oropharynx clear without exudates. Moist mucous membranes. NECK: Normal range of motion, supple without lymphadenopathy LUNGS: Breath sounds clear to auscultation bilaterally and equal. No wheezes rales or rhonchi. HEART: Regular rate and rhythm without murmurs ABDOMEN: Soft, pressure in the suprapubic region. No guarding, no rebound. No masses appreciated. Musculoskeletal: Normal range of motion, no pitting or edema. No cyanosis. NEUROLOGICAL: Cranial nerves grossly intact. Normal speech, normal gait. Normal sensory, motor exams PSYCH: Normal mood, normal affect. SKIN: Warm, Dry, normal turgor, no rashes or lesions noted. Physical Exam - Vital signs Vitals: Temp Pulse Resp BP Pulse Ox 98.6 F 83 16 149/90 H 98 11/08/17 08:16 11/08/17 08:16 11/08/17 08:16 11/08/17 08:16 11/08/17 08:16 Course - Re-evaluation Re-evalutation: 11/08/17 08:50 Patient's presentation is most consistent with benign prostatic hypertrophy causing difficulty voiding, a 16 Lao coud will be attempted to be placed which the patient states is the usual Navarrete 11/08/17 10:03 Navarrete was placed with no difficulty urine will be sent for culture but given that he is asymptomatic I do not believe any intervention is necessary at this time After performing a Medical Screening Examination, I estimate there is LOW risk for ACUTE APPENDICITIS, BOWEL OBSTRUCTION, ACUTE CHOLECYSTITIS, PERFORATED DIVERTICULITIS, INCARCERATED HERNIA, PANCREATITIS, TESTICULAR TORSION or PERFORATED ULCER, thus I consider the discharge disposition reasonable. Also, there is no evidence or peritonitis, sepsis, or toxicity. I have reevaluated this patient multiple times and no significant life threatening changes are noted. The patient and I have discussed the diagnosis and risks, and we agree with discharging home with close follow-up with the understanding that symptoms and presentations can change. We also discussed returning to the Emergency Department immediately if new or worsening symptoms occur. We have discussed the symptoms which are most concerning (e.g., bloody stool, fever, changing or worsening pain, intractable vomiting - standard verbal up date) that necessitate immediate return. - Vital Signs Vital signs: Temp Pulse Resp BP Pulse Ox 98.3 F 72 16 122/72 97 11/08/17 09:35 11/08/17 09:35 11/08/17 08:16 11/08/17 09:35 11/08/17 09:35 - Laboratory Laboratory results interpreted by me: 11/08/17 09:17 Urine Protein 30 H Urine Blood MODERATE H Ur Leukocyte Esterase LARGE H Discharge - Discharge Clinical Impression: Navarrete catheter problem Qualifiers: Encounter type: initial encounter Qualified Code(s): T83.9XXA - Unspecified complication of genitourinary prosthetic device, implant and graft, initial encounter Condition: Stable Disposition: HOME, SELF-CARE Instructions: Navarrete Catheter Care ([facility]) Referrals: LILIANE CARDONA MD [Primary Care Provider] - Follow up tomorrow
[2017-11-08 09:39] VITALS: BP 122/72
[2017-11-08 09:39] LABS: APPEARANCE,URINE CLOUDY; BILIRUBIN,URINE NEGATIVE (NEGATIVE); COLOR,URINE YELLOW; GLUCOSE, URINE NEGATIVE (NEGATIVE); KETONES,URINE NEGATIVE (NEGATIVE); LEUKOCYTE ESTERASE,URINE LARGE (NEGATIVE); NITRITE,URINE NEGATIVE (NEGATIVE); PROTEIN,URINE 30 mg/dL (NEGATIVE); URINE SPECIFIC GRAVITY 1.014; UROBILINOGEN,URINE NEGATIVE mg/dL (<2.0)
== END 2017-11-08 09:39 | disposition home or self-care (01) ==
LOC: ER 08:09
DX: T83.9XXA Unspecified complication of genitourinary prosthetic device, implant and graft, initial encounter (principal); X58.XXXA Exposure to other specified factors, initial encounter; Z85.07 Personal history of malignant neoplasm of pancreas; Z88.0 Allergy status to penicillin
CPT/HCPCS: 51702; 81001; 87086; 87088; 87186; 99283

== ENCOUNTER 2018-01-06 23:47 | Emergency (ER) | payer OTHER ==
--- NOTE | 2018-01-06 23:58 | ER Document Report ---
ED Medical Screen (RME) - General Chief Complaint: Urinary Retention Stated Complaint: CATHETER PROBLEM Time Seen by Provider: 01/06/18 23:56 Mode of Arrival: Ambulatory Information source: Patient Notes: Patient is a 62-year-old male who presents with chief complaint of urinary retention. Patient reports that he has had a Saxena catheter for approximately 1 year due to an enlarged prostate. Patient reports the catheter was removed at 9 AM this morning by his urologist. Patient reports that he was able to urinate all day until 7 PM tonight at which point he has been unable to urinate. Patient reports extreme discomfort and reports that he continually has the urge to urinate. Exam: Alert, oriented, mild distress noted Tenderness to palpation over urinary bladder I have greeted and performed a rapid initial assessment of this patient. A comprehensive ED assessment and evaluation of the patient, analysis of test results and completion of the medical decision making process will be conducted by additional ED providers. Dictation of this chart was performed using voice recognition software; therefore, there may be some unintended grammatical errors. TRAVEL OUTSIDE OF THE [place] IN LAST 30 DAYS: No - Related Data Allergies/Adverse Reactions: Penicillins Allergy (Verified 11/08/17 08:10) Past Medical History - Past Medical History Cardiac Medical History: Denies: Hx Coronary Artery Disease, Hx Heart Attack, Hx Hypertension Pulmonary Medical History: Denies: Hx Asthma, Hx Bronchitis, Hx COPD, Hx Pneumonia Neurological Medical History: Denies: Hx Cerebrovascular Accident, Hx Seizures Renal/ Medical History: Reports: Hx Benign Prostatic Hyperplasia. Denies: Hx Peritoneal Dialysis Malignancy Medical History: Reports Hx Pancreatic Cancer Musculoskeltal Medical History: Reports Hx Arthritis - Immunizations Hx Diphtheria, Pertussis, Tetanus Vaccination: No Doctor's Discharge - Discharge Referrals: LILIANE CARDONA MD [Primary Care Provider] - Follow up as needed
--- NOTE | 2018-01-07 01:25 | ER Document Report ---
ED GI/ - General Chief Complaint: Urinary Retention Stated Complaint: CATHETER PROBLEM Time Seen by Provider: 01/06/18 23:56 Mode of Arrival: Ambulatory TRAVEL OUTSIDE OF THE [place] IN LAST 30 DAYS: No - HPI Patient complains to provider of: Urinary retention Onset: This afternoon - Gentleman who had his Saxena catheter removed this morning for a trial of void initially passed and then failed his trial of void later in the day he began having dribbling and then new onset urinary retention again. He was unable to get any urine out had increasing abdominal pain. Denies any other symptoms and then came back to the emergency room for further evaluation. Did see his urologist this morning for his trial of void. - Related Data Allergies/Adverse Reactions: Penicillins Allergy (Verified 11/08/17 08:10) Past Medical History - General Information source: Patient - Social History Smoking Status: Former Smoker Frequency of alcohol use: None Drug Abuse: None Family History: Arthritis, CVA, DM. denies: CAD, COPD, Hyperlipidemia, Hypertension, Malignancy, Thyroid Disfunction Patient has suicidal ideation: No Patient has homicidal ideation: No - Past Medical History Cardiac Medical History: Denies: Hx Coronary Artery Disease, Hx Heart Attack, Hx Hypertension Pulmonary Medical History: Denies: Hx Asthma, Hx Bronchitis, Hx COPD, Hx Pneumonia Neurological Medical History: Denies: Hx Cerebrovascular Accident, Hx Seizures Renal/ Medical History: Reports: Hx Benign Prostatic Hyperplasia. Denies: Hx Peritoneal Dialysis Malignancy Medical History: Reports Hx Pancreatic Cancer Musculoskeletal Medical History: Reports Hx Arthritis - Immunizations Hx Diphtheria, Pertussis, Tetanus Vaccination: No Review of Systems - Review of Systems -: Yes All other systems reviewed and negative Physical Exam - Vital signs Vitals: Temp Pulse Resp BP Pulse Ox 98.2 F 83 18 140/67 H 98 01/07/18 01:44 01/07/18 01:44 01/07/18 01:44 01/07/18 01:44 01/07/18 01:44 - General General appearance: Appears well In distress: None - HEENT Head: Normocephalic Eyes: Normal Conjunctiva: Normal - Respiratory Respiratory status: No respiratory distress Chest status: Nontender Breath sounds: Normal Chest palpation: Normal - Cardiovascular Rhythm: Regular Heart sounds: Normal auscultation Murmur: No - Abdominal Inspection: Normal Distension: No distension Bowel sounds: Normal Tenderness: Nontender - Genitourinary Cremasteric reflex: Normal Scrotum: Normal - Extremities General upper extremity: Normal inspection General lower extremity: Normal inspection - Neurological Neuro grossly intact: Yes Cognition: Normal Orientation: AAOx4 Course - Re-evaluation Re-evalutation: 01/08/18 05:25 62-year-old man with urinary retention as a result of BPH. Had a trial of void this morning and his urologists office subsequently was unable to void had worsening pain and swelling the suprapubic aspect presented for evaluation. Evaluation patient did have urinary retention, subsequently placed Saxena catheter had approximately 500 mL urine output thereafter. Patient's urine is clear, will plan for discharge encouraged follow-up in his urologist's office as previous with another trial of void in 1 week. - Vital Signs Vital signs: Temp Pulse Resp BP Pulse Ox 98.2 F 83 18 140/67 H 98 01/07/18 01:44 01/07/18 01:44 01/07/18 01:44 01/07/18 01:44 01/07/18 01:44 Discharge - Discharge Clinical Impression: Saxena catheter in place, Urinary retention Condition: Good Disposition: HOME, SELF-CARE Instructions: Saxena Catheter Care (OM)
[2018-01-07 01:45] VITALS: BP 140/67
== END 2018-01-07 01:45 | disposition home or self-care (01) ==
LOC: ER 23:47
DX: R33.8 Other retention of urine (principal); Z46.6 Encounter for fitting and adjustment of urinary device; Z88.0 Allergy status to penicillin
CPT/HCPCS: 51702; 99283

== ENCOUNTER 2018-01-08 23:04 | Emergency (ER) | payer OTHER ==
[2018-01-09] MEDS ORDERED: LIDOCAINE 2% URO-JET 5 ML KIT MM ONE (02:46)
[2018-01-09 03:23] LABS: APPEARANCE,URINE SLIGHTLY-CLOUDY; BILIRUBIN,URINE NEGATIVE (NEGATIVE); COLOR,URINE YELLOW; GLUCOSE, URINE NEGATIVE (NEGATIVE); KETONES,URINE NEGATIVE (NEGATIVE); LEUKOCYTE ESTERASE,URINE LARGE (NEGATIVE); NITRITE,URINE NEGATIVE (NEGATIVE); PROTEIN,URINE NEGATIVE (NEGATIVE); URINE SPECIFIC GRAVITY 1.013; UROBILINOGEN,URINE NEGATIVE mg/dL (<2.0)
--- NOTE | 2018-01-09 03:39 | ER Document Report ---
ED General - General Chief Complaint: Needs Urinary Cath Replaced Stated Complaint: REPLACE NAVARRETE Time Seen by Provider: 01/09/18 02:45 Notes: Patient is a pleasant 6-year-old male with a history of benign prostatic hypertrophy. He requires a catheter to help relieve urinary obstruction. He had a catheter in place but says is not functioning appropriately. Says usually the only catheter works as a 16 [place] coud. He requests that this be put in. Patient has a lot of pain in the suprapubic region due to urinary retention. Denies any fevers. He is currently on antibiotic for urinary tract infection. He thinks antibiotic to Cipro. He is followed by Dr. Benítez, urology. TRAVEL OUTSIDE OF THE [place] IN LAST 30 DAYS: No - Related Data Allergies/Adverse Reactions: Penicillins Allergy (Verified 11/08/17 08:10) Past Medical History - Social History Smoking Status: Never Smoker Frequency of alcohol use: None Drug Abuse: None Family History: Arthritis, CVA, DM. denies: CAD, COPD, Hyperlipidemia, Hypertension, Malignancy, Thyroid Disfunction Patient has suicidal ideation: No Patient has homicidal ideation: No - Past Medical History Cardiac Medical History: Denies: Hx Coronary Artery Disease, Hx Heart Attack, Hx Hypertension Pulmonary Medical History: Denies: Hx Asthma, Hx Bronchitis, Hx COPD, Hx Pneumonia Neurological Medical History: Denies: Hx Cerebrovascular Accident, Hx Seizures Renal/ Medical History: Reports: Hx Benign Prostatic Hyperplasia. Denies: Hx Peritoneal Dialysis Malignancy Medical History: Reports Hx Pancreatic Cancer Musculoskeletal Medical History: Reports Hx Arthritis - Immunizations Hx Diphtheria, Pertussis, Tetanus Vaccination: No Review of Systems - Review of Systems Notes: My Normal Review Basic REVIEW OF SYSTEMS: CONSTITUTIONAL : Denies fever, chills, or sweats. Denies recent illness. Gastrointestinal: Suprapubic abdominal tenderness. No nausea vomiting. GENITOURINARY: Urinary retention ALL OTHER SYSTEMS REVIEWED AND NEGATIVE. Physical Exam - Vital signs Vitals: Temp Pulse Resp BP Pulse Ox 98.7 F 92 16 173/99 H 100 01/09/18 00:08 01/09/18 00:08 01/09/18 00:08 01/09/18 00:08 01/09/18 00:08 - Notes Notes: General Appearance: Well nourished, alert, cooperative, no acute distress, moderate obvious discomfort. Vitals: reviewed, See vital signs table. Abdomen: Mild to moderate suprapubic abdominal pain to palpation. Remainder of abdomen is nontender. Genital: No bleeding from urethra. No abnormal discharge. Neuro: speech clear, oriented x 3, normal affect, responds appropriately to questions. Course - Re-evaluation Re-evalutation: 01/09/18 03:39 Navarrete catheter was placed. Patient has approximately 800 mL's of urine out. Patient feels much improved. Urinalysis does show some infection the patient's recently placed on an antibiotic. I will send his urine for culture to make sure that antibiotics appropriate. Patient to follow-up closely with Dr. Benítez. Patient encouraged to return to ER if he has malfunction of the catheter, urinary retention, fevers, or feels unwell. Patient agrees with plan will be discharged home. Dictation of this chart was performed using voice recognition software; therefore, there may be some unintended grammatical errors. - Vital Signs Vital signs: Temp Pulse Resp BP Pulse Ox 98.7 F 92 16 173/99 H 100 01/09/18 00:08 01/09/18 00:08 01/09/18 00:08 01/09/18 00:08 01/09/18 00:08 - Laboratory Laboratory results interpreted by me: 01/08/18 23:15 Urine Blood MODERATE H Ur Leukocyte Esterase LARGE H Discharge - Discharge Clinical Impression: Encounter for Navarrete catheter replacement UTI (urinary tract infection) Qualifiers: Urinary tract infection type: site unspecified Hematuria presence: without hematuria Qualified Code(s): N39.0 - Urinary tract infection, site not specified Condition: Good Disposition: HOME, SELF-CARE Additional Instructions: Please follow up wit Dr. Benítez this coming week. I have sent your urine for culture. If it shows resistance to Cipro we will call your to change your antibiotic. please return to the ER immediately if you have worsening pain, fevers, or feel that your catheter is not working appropriately. Referrals: NORY BENÍTEZ II, MD [JOYA GUERIN] - Follow up in 3-5 days
[2018-01-09 03:55] VITALS: BP 129/79
== END 2018-01-09 03:53 | disposition home or self-care (01) ==
LOC: ER 23:04
DX: Z46.6 Encounter for fitting and adjustment of urinary device (principal); N39.0 Urinary tract infection, site not specified; N40.1 Benign prostatic hyperplasia with lower urinary tract symptoms; R33.8 Other retention of urine; Z88.0 Allergy status to penicillin; Z85.07 Personal history of malignant neoplasm of pancreas
CPT/HCPCS: 99283; 51702; 87086; 81001; J3490